=== PATIENT | female | born 1955 | race Caucasian/White ===

== ENCOUNTER 2017-08-03 12:50 | Outpatient (CLI) | payer OTHER ==
--- NOTE | 2017-08-03 14:23 | MRI ---
MRI RIGHT KNEE WITHOUT CONTRAST: HISTORY: M25.561, right knee pain. COMPARISON: None. FINDINGS: Median Meniscus: Undersurface flap tear body and posterior horn medial meniscus with 3 mm medial gutter extrusion. Th ere is abnormal signal extending to the root attachment. Lateral Meniscus: There is incomplete discoid lateral meniscus measuring up to 15 mm. Mild degenerative signal within the body and posterior horn. The ACL, PCL, MCL, and LCLC are all intact. Extensor Mechanism: Quadriceps tendon, patella, and patellar tendon are all intact. CARTILAGE: Patellofemoral Compartment: There is multifocal 30% cartilage fissuring of the patellar apex. Medial Compartment: Multifocal grade III chondromalacia central weightbearing surface of the mediofemoral condyle and med ial tibial plateau. Lateral Compartment: Intact. Moderate-sized joint effusion. Mild synovitis. Muscles: Normal muscle signal and bulk. IMPRESSION: 1. Undersurface flap tear of posterior horn and medial meniscus with multifocal grade III chondromal acia as well as small osteophyte formation. 2. 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 3. Moderate joint effusion and synovitis. 4. 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 POS: [facility]
== END 2017-08-03 12:51 | disposition home or self-care (01) ==
LOC: SCSMRI 12:50
PROVIDERS: ATTEND Orthopaedic Surgery
DX: S83.241A Other tear of medial meniscus, current injury, right knee, initial encounter (principal); M22.41 Chondromalacia patellae, right knee; M25.461 Effusion, right knee; M65.88 Other synovitis and tenosynovitis, other site; M17.11 Unilateral primary osteoarthritis, right knee

== ENCOUNTER 2017-08-14 15:22 | Outpatient (CLI) | payer OTHER ==
[2017-08-14 16:03] LABS: #Eosinphils 0.2 thou/uL (0.0-0.7); #Monocytes 0.6 thou/uL (0.11-0.59); %Basophils 0.7 % (0.0-1.0); %Eosinophils 3.2 % (0.0-10.0); %Lymphocytes 28.8 % (21.0-51.0); %Monocytes 8.2 % (0.0-10.0); %Neutrophils 59.2 % (42.0-75.0); Hemoglobin 11.7 g/dL (12.0-16.0); Mean Corpuscular HGB CONC 34.2 g/dL (32.0-36.0); Mean Corpuscular Hemoglobin 30.3 pg (27.0-31.0); Mean Corpuscular Volume 88.7 fl (81.0-99.0); Mean Platelet Volume 7.2 fL (7.4-10.4); Platelet Count 205 thou/uL (130-400); RBC Distribution Width 12.7 % (11.5-14.5); Red Blood Cell (RBC) Count 3.85 mill/uL (4.20-5.40); White Blood Cell (WBC) Count 6.8 thou/uL (4.8-10.8)
[2017-08-14 16:21] LABS: Anion Gap 12 mmol/L (10-20); BUN (Urea Nitrogen) 17 mg/dL (9.8-20.1); Calc. Creatinine Clearance 0 mL/min (70-130); Calcium 9.3 mg/dL (7.8-10.44); Carbon Dioxide 27 mmol/L (22-29); Chloride 106 mmol/L (98-107); Estimated GFR-MDRD 70; Glucose 105 mg/dL (70-105); Potassium 3.6 mmol/L (3.5-5.1); Sodium 141 mmol/L (136-145)
== END 2017-08-14 15:23 | disposition home or self-care (01) ==
LOC: LABBT 15:22
PROVIDERS: ATTEND Orthopaedic Surgery
DX: Z01.818 Encounter for other preprocedural examination (principal); S83.241D Other tear of medial meniscus, current injury, right knee, subsequent encounter
CPT/HCPCS: 80048; 85025; 93005; 93010

== ENCOUNTER → 2017-08-18 | Day surgery (SDC) | payer OTHER ==
[2017-08-14 15:38] VITALS: BMI 37.1
[~2017-08-18] MED LIST: CEFAZOLIN/Water 2 GM/20 ML SYRINGE ONE; PROPOFOL 20 ML ONE
--- NOTE | 2017-08-18 10:17 | OP ---
DATE OF PROCEDURE: 08/18/2017 PREOPERATIVE DIAGNOSIS: Medial meniscus tear, right knee. POSTOPERATIVE DIAGNOSIS: Medial meniscus tear, right knee. SURGEON: Rivera Meeks M.D. ANESTHESIA: General. BLOOD LOSS: Minimal. SPECIMEN: None. DRAINS: None. COMPLICATIONS: None. PROCEDURE: Arthroscopic partial medial meniscectomy. FINDINGS AT SURGERY: Grade III chondromalacia medial femoral condyle, intact lateral compartment, in tact patellofemoral joint. A posterior horn medial meniscus tear. PROCEDURE IN DETAIL: The scope was placed in the lateral portal and probe was placed in medial noble l. I removed most of the posterior medial meniscus using basket forceps to smooth this using a 4-0 f ull radius resector. I probed the rim of the meniscus, confirmed it was stable. The knee was then i rrigated. Findings were otherwise as described above. A sterile dressing was applied.
== END ==
LOC: SDC 06:19
PROVIDERS: ATTEND Orthopaedic Surgery
PROC: 0SBC4ZZ Excision of Right Knee Joint, Percutaneous Endoscopic Approach (ICD-10-PCS; principal; 2017-08-18)
DX: S83.241A Other tear of medial meniscus, current injury, right knee, initial encounter (principal); M94.261 Chondromalacia, right knee; Z79.899 Other long term (current) drug therapy
CPT/HCPCS: G8978-GP-CI; G8979-GP-CI; G8980-GP-CI; J2704

== ENCOUNTER 2018-01-25 08:23 | Outpatient (CLI) | payer OTHER | END 2018-01-25 08:24 | disposition home or self-care (01) | LOC: BICMAMMO 08:23 | PROVIDERS: ATTEND Family Medicine | DX: Z12.31 Encounter for screening mammogram for malignant neoplasm of breast (principal) | CPT/HCPCS: 77067 ==

== ENCOUNTER 2018-03-12 10:12 | Outpatient (CLI) | payer OTHER ==
--- NOTE | 2018-03-12 11:43 | RAD ---
TWO VIEW CHEST: Indication: Asthmatic bronchitis with acute exacerbation. FINDINGS: There is no lobar consolidation, effusion or pneumothorax. Cardiac silhouette is mildly enlarged as i s the central pulmonary vasculature. Interstitial prominence of each lung is seen. No pleural fluid o r pneumothorax. There is vascular calcification and osseous degenerative change. IMPRESSION: 1. Interstitial opacities bilaterally may relate to edema versus interstitial lung disease. 2. Evidence of mild CHF. 3. No lobar consolidation. POS: [facility]
== END 2018-03-12 10:13 | disposition home or self-care (01) ==
LOC: BICRAD 10:12
PROVIDERS: ATTEND Family Medicine
DX: J45.901 Unspecified asthma with (acute) exacerbation (principal); I50.9 Heart failure, unspecified; R91.8 Other nonspecific abnormal finding of lung field
CPT/HCPCS: 71046

== ENCOUNTER 2018-06-05 13:46 | Outpatient (CLI) | payer OTHER ==
[2018-06-05 14:23] LABS: #Eosinphils 0.2 thou/uL (0.0-0.7); #Lymphocytes 2.4 thou/uL (1.20-3.40); #Monocytes 0.8 thou/uL (0.11-0.59); %Basophils 0.4 % (0.0-1.0); %Eosinophils 2.4 % (0.0-10.0); %Lymphocytes 28.2 % (21.0-51.0); %Monocytes 9.4 % (0.0-10.0); %Neutrophils 59.5 % (42.0-75.0); Hemoglobin 12.5 g/dL (12.0-16.0); Mean Corpuscular HGB CONC 33.2 g/dL (32.0-36.0); Mean Corpuscular Hemoglobin 29.2 pg (27.0-31.0); Mean Corpuscular Volume 87.9 fL (78.0-98.0); Mean Platelet Volume 7.5 fL (7.4-10.4); Platelet Count 252 thou/uL (130-400); RBC Distribution Width 12.4 % (11.5-14.5); Red Blood Cell (RBC) Count 4.29 mill/uL (4.20-5.40); White Blood Cell (WBC) Count 8.4 thou/uL (4.8-10.8)
[2018-06-05 14:34] LABS: Anion Gap 11 mmol/L (10-20); BUN (Urea Nitrogen) 15 mg/dL (9.8-20.1); Calc. Creatinine Clearance 0 mL/min (70-130); Calcium 9.2 mg/dL (7.8-10.44); Carbon Dioxide 28 mmol/L (23-31); Chloride 105 mmol/L (98-107); Estimated GFR-MDRD 68; Glucose 94 mg/dL (80-115); Potassium 4.1 mmol/L (3.5-5.1); Sodium 140 mmol/L (136-145)
== END 2018-06-05 13:47 | disposition home or self-care (01) ==
LOC: LABBT 13:46
PROVIDERS: ATTEND Orthopaedic Surgery
DX: Z01.812 Encounter for preprocedural laboratory examination (principal); S83.242A Other tear of medial meniscus, current injury, left knee, initial encounter; Z98.890 Other specified postprocedural states
CPT/HCPCS: 80048; 85025; 93005; 93010

== ENCOUNTER 2018-06-08 06:29 | Day surgery (SDC) | payer OTHER ==
[2018-06-05 13:55] VITALS: BMI 39.5
[2018-06-08] MEDS ORDERED: PROPOFOL 20 ML ONE (07:21)
--- NOTE | 2018-06-08 14:38 | OP ---
DATE OF PROCEDURE: 06/08/2018 PREOPERATIVE DIAGNOSIS: Left knee medial meniscus tear. POSTOPERATIVE DIAGNOSIS: Left knee medial meniscus tear. PROCEDURE PERFORMED: Arthroscopic medial meniscectomy. ANESTHESIA: General. ESTIMATED BLOOD LOSS: Minimal. SPECIMENS: None. DRAINS: None. COMPLICATIONS: None. DESCRIPTION OF PROCEDURE: The patient was taken to the operating room, where general anesthesia was induced. Left leg was prepped and draped in usual sterile fashion. The scope was placed in the lateral portal and probe was placed in the medial portal, which showed some mild chondromalacia of the patella, some grade 2 chondromalacia of medial femoral condyle. She had a large complex medial meniscus tear, which was debrided using basket forceps and smoothed using a resector blade. ACL was intact. Lateral compartment was intact. I irrigated the compartments and the gutters to make sure there were no loose bodies remaining in the joint. The knee was then drained. Sterile dressing was applied. Job ID: [id number]
[2018-06-08] MEDS ORDERED: Lidocaine 2% w/Epinephrine 1:200K 20 ML VIAL ONE (16:29)
[2018-06-08] MEDS ORDERED: Bupivacaine HCl 0.5%/Epinephrine 1:200,000/PF 30 ml Vial ONE (16:29)
[2018-06-08] MEDS ORDERED: Ketorolac Tromethamine 30 MG/ML VIAL ONE (16:51)
[2018-06-08] MEDS ORDERED: Ondansetron PF 4 MG/2 ML Vial ONE (16:51)
[2018-06-08] MEDS ORDERED: PROPOFOL 200 MG/20 ML VIAL ONE (16:51)
[2018-06-08] MEDS ORDERED: Lidocaine 1% PF 5 ML VIAL ONE (16:51)
== END 2018-06-08 10:00 | disposition home or self-care (01) ==
LOC: SDC 06:29
PROVIDERS: ATTEND Orthopaedic Surgery
PROC: 0SBD4ZZ Excision of Left Knee Joint, Percutaneous Endoscopic Approach (ICD-10-PCS; principal; 2018-06-08)
DX: S83.232A Complex tear of medial meniscus, current injury, left knee, initial encounter (principal); M22.42 Chondromalacia patellae, left knee; I10 Essential (primary) hypertension; E66.9 Obesity, unspecified; Z68.39 Body mass index [BMI] 39.0-39.9, adult; Z87.891 Personal history of nicotine dependence; Z79.899 Other long term (current) drug therapy; Z98.890 Other specified postprocedural states
CPT/HCPCS: J0690; J2704

== ENCOUNTER 2019-08-12 08:07 | Outpatient (CLI) | payer OTHER ==
--- NOTE | 2019-08-12 08:37 | MMO ---
Bilateral MAMMO Bilat Screen [facility]. CLINICAL HISTORY: Patient is 64 years old and is seen for screening. The patient has no family history of breast cancer. The patient has no personal history of cancer. VIEWS: The views performed were: bilateral craniocaudal with tomosynthesis and bilateral mediolateral oblique with tomosynthesis. FILMS COMPARED: The present examination has been compared to prior imaging studies performed at [facility] on 06/15/2006 and 09/08/2008, and at [facility] on 03/01/2007. This study has been interpreted with the assistance of computer-aided detection. MAMMOGRAM FINDINGS: The breasts are heterogeneously dense, which could obscure a lesion on mammography. There are stable benign appearing calcifications seen in both breasts. There are no suspicious masses, suspicious calcifications, or new areas of architectural distortion. IMPRESSION: THERE IS NO MAMMOGRAPHIC EVIDENCE OF MALIGNANCY. A ROUTINE FOLLOW-UP MAMMOGRAM IN 1 YEAR IS RECOMMENDED. THE RESULTS OF THIS EXAM WERE SENT TO THE PATIENT. ACR BI-RADS Category 2 - Benign finding MAMMOGRAPHY NOTE: 1. A negative mammogram report should not delay a biopsy if a dominant of clinically suspicious mass is present. 2. Approximately 10% to 15% of breast cancers are not detected by mammography. 3. Adenosis and dense breasts may obscure an underlying neoplasm. Reported by: KATLYN LE MD Electonically Signed: [id number]
== END 2019-08-12 08:08 | disposition home or self-care (01) ==
LOC: BICMAMMO 08:07
PROVIDERS: ATTEND Family Medicine
DX: Z12.31 Encounter for screening mammogram for malignant neoplasm of breast (principal)
CPT/HCPCS: 77063; 77067

== ENCOUNTER 2020-03-30 08:41 | Inpatient (IN) | payer OTHER ==
[2020-03-30] MEDS ORDERED: Morphine 4 MG/ML VIAL ONE (09:25)
[2020-03-30] MEDS ORDERED: ePHEDrine/0.9% NaCl/PF SYRINGE 50 mg/10 ml ONE (09:26)
[2020-03-30] MEDS ORDERED: Lidocaine 1% PF 5 ML VIAL ONE (09:26)
[2020-03-30] MEDS ORDERED: PROPOFOL 200 MG/20 ML VIAL ONE (09:26)
[2020-03-30] MEDS ORDERED: Dexamethasone 20 MG/5 ML VIAL ONE (09:26)
[2020-03-30] MEDS ORDERED: Glycopyrrolate 0.2 MG/ML 5 ML SYRINGE ONE (09:26)
[2020-03-30] MEDS ORDERED: Ondansetron PF 4 MG/2 ML Vial ONE ×2 (09:26→09:29)
[2020-03-30] MEDS ORDERED: Rocuronium Bromide 10 MG/ML (10ML VIAL) ONE (09:26)
[2020-03-30] MEDS ORDERED: Ketorolac Tromethamine 30 MG/ML VIAL ONE (09:26)
--- NOTE | 2020-03-30 09:55 | RAD ---
XR Knee Rt 4 View STANDARD HISTORY: Fall, right knee pain FINDINGS: Degenerative changes are present. No fracture or dislocation is identified.
--- NOTE | 2020-03-30 09:57 | RAD ---
EXAM: 3 views of the right ankle HISTORY: Ankle pain after falling COMPARISON: None FINDINGS: 3 views of the right ankle shows comminuted fractures of the distal diaphyses of the tibia and fibula. Moderate diffuse soft tissue swelling is seen. No degenerative changes are present in the ankle. There are degenerative changes in the midfoot. There are questionable fractures of the bas es of the second through fourth metatarsals. IMPRESSION: 1. Distal tibia and fibula fractures 2. Possible fractures of the bases of the second through fourth metatarsals
--- NOTE | 2020-03-30 10:00 | RAD ---
2 views of the right foot: 03/30/2020 Comparison: None HISTORY: Fall from a deer stand, ankle pain FINDINGS: There is prominent soft tissue swelling overlying the midfoot. There is enthesophyte format ion of the Achilles insertion and plantar aponeurosis origin. There is an incompletely assessed obliquely oriented fracture involving the distal right fibula and t he distal right tibia. Evaluation of the foot is limited as only 2 views are provided. No frontal radiograph of the right fo ot is provided. There are findings concerning for multiple proximal metatarsal shaft fractures, probably involving the second, third, and fourth proximal metatarsals. Recommend further assessment w ith full right foot series or CT. IMPRESSION: Incomplete assessment of the right foot with findings suspicious for multiple proximal me tatarsal shaft fractures. There are fractures involving the distal right tibia and distal right fibula as well. Further imaging the right foot is advised to fully assess. Please see above mili youngblood.
--- NOTE | 2020-03-30 10:38 | RAD ---
RIGHT LOWER LEG 2 VIEWS: Date: 03/30/2020 INDICATION: History of fall with leg injury. COMPARISON: None. FINDINGS: There is a heavily comminuted distal tibiofibular fracture, predominantly spiral in orientation. Dist al fracture fragments are displaced posteriorly one cortex width. There is no evidence of fracture ex tension into the tibial plafond. IMPRESSION: Heavily comminuted distal tibiofibular fracture. POS: [facility]
[2020-03-30] MEDS ORDERED: HYDROmorphone 0.5 MG/0.5 ML SYRINGE ONE ×4 (10:41→15:40)
--- NOTE | 2020-03-30 10:47 | RAD ---
XR Chest 1 View Portable HISTORY: Preoperative evaluation. Lower extremity fractures. COMPARISON: None FINDINGS: The heart size is normal. The lungs are well expanded without focal areas of consolidation, pneumothorax or pleural effusions. IMPRESSION: No radiographic evidence of acute cardiopulmonary process.
[2020-03-30 11:06] LABS: #Lymphocytes 1.1 thou/uL (1.20-3.40); #Monocytes 0.5 thou/uL (0.11-0.59); #Neutrophils 6.5 thou/uL (1.40-6.50); %Basophils 0.3 % (0.0-1.0); %Eosinophils 0.3 % (0.0-10.0); %Lymphocytes 13.4 % (21.0-51.0); %Monocytes 6.1 % (0.0-10.0); %Neutrophils 79.9 % (42.0-75.0); Hemoglobin 12.1 g/dL (12.0-16.0); Mean Corpuscular HGB CONC 33.8 g/dL (32.0-36.0); Mean Corpuscular Hemoglobin 29.6 pg (27.0-31.0); Mean Corpuscular Volume 87.8 fL (78.0-98.0); Mean Platelet Volume 7.6 fL (7.4-10.4); Platelet Count 193 thou/uL (130-400); RBC Distribution Width 11.9 % (11.5-14.5); Red Blood Cell (RBC) Count 4.08 mill/uL (4.20-5.40); White Blood Cell (WBC) Count 8.2 thou/uL (4.8-10.8)
[2020-03-30 11:17] LABS: INR-International Normal Ratio 1.1; PTT 32.2 sec (22.9-36.1); Prothrombin Time 14.1 sec (12.0-14.7)
--- NOTE | 2020-03-30 11:18 | CON ---
DATE OF CONSULTATION: 03/30/2020 This is Cristel Kimbrough PA-C dictating a report for Home Powell MD. REQUESTING PHYSICIAN: Jose Reich MD CONSULTING PHYSICIAN: Home Powell MD REASON FOR CONSULTATION: Right ankle and foot fractures. HISTORY OF PRESENT ILLNESS: This is a 65-year-old female, who presented to our facility after a fall from a deer stand. She states she was climbing into the deer stand early this morning to la hogs with her when she lost her balance and fell backward landing awkwardly onto her right leg. She presented to our facility by way of ground EMS, and upon workup in our emergency department, she was found to have distal right tibia shaft fracture as well as multiple foot fractures. We have been consulted for this reason. Currently at bedside, the patient denies any head injury or loss of consciousness. Denies any numbness, tingling. She mainly complains of right ankle and foot pain. No other orthopedic complaints at this time. PAST MEDICAL HISTORY: Hypertension. PAST SURGICAL HISTORY: Hemorrhoidectomy, hysterectomy, multiple C-sections, bilateral knee arthroscopies. SOCIAL HISTORY: The patient lives at home with . She is retired. She is a former smoker, quit approximately three years ago. She drinks beer approximately every 3 to 4 days. She is an independent ambulator. FAMILY HISTORY: Reviewed and noncontributory. REVIEW OF SYSTEMS: Ten-point review of systems conducted and otherwise negative except for stated above. PHYSICAL EXAMINATION: VITAL SIGNS: Current vital signs including blood pressure of 180/80, pulse of 73, respiratory rate of 15, O2 saturation of 100% on room air. GENERAL: The patient is awake and alert. She answers all questions appropriately. Her is at bedside in the ER. She appears slightly distressed secondary to pain at this current time. HEENT: Head is normocephalic and atraumatic. NECK: Supple. Trachea midline. LUNGS: Breathing is nonlabored. EXTREMITIES: Evaluation of the right lower extremity shows a deformity of the lower leg. The lower portion of the leg including the ankle and foot are externally rotated while the knee is in AP alignment. She is able to slightly wiggle her toes. Dorsalis pedis pulse is palpable. Foot is warm to touch. She is tender along the dorsum of the foot and the distal tibia region. The knee is nontender. A log roll was not elicited secondary to the patient's current pain status. Skin is intact and no lesions or rashes are noted to the right lower extremity. Left lower extremity and bilateral upper extremities, no injuries or deformities are noted. She is using these limbs without any difficulty. IMAGING DATA: Radiographic imaging reviewed today including views of the right tibia, right ankle and right foot demonstrate a distal oblique fracture of the right tibia with displacement and rotational deformity. There are multiple metatarsal fractures appear at the proximal aspect of two through four, although not completely visualized. This is a two-part foot series. Radiology recommends CT evaluation for further fracture assessment. ASSESSMENT: Distal tibial fracture and multiple foot fractures in a 65-year-old female with a fall from a deer stand. PLAN: The patient has been n.p.o. She will be admitted to the Trauma Service. We will consult with Dr. Powell for further evaluation of the foot films before proceeding with a CT per his recommendation. We will get this leg reduced and comfortable in a splint for her. At this time, she is very uncomfortable. We have discussed surgery with her. We will plan to go forward with this afternoon in order to restore anatomic alignment and promote function. This will include ORIF of the right distal tibia and possibly ORIF of fractures in the foot depending on imaging. Plan of care discussed with the patient and her today. They are amenable to this. Job ID: [id number]
[2020-03-30 11:31] LABS: ALT (SGPT) 15 U/L (8-55); AST (SGOT) 28 U/L (5-34); Albumin 4.5 g/dL (3.4-4.8); Alkaline Phosphatase 54 U/L (40-110); Anion Gap 14 mmol/L (10-20); BUN (Urea Nitrogen) 18 mg/dL (9.8-20.1); Bilirubin, Total 0.6 mg/dL (0.2-1.2); Calc. Creatinine Clearance 0 mL/min (70-130); Calcium 8.9 mg/dL (7.8-10.44); Carbon Dioxide 25 mmol/L (23-31); Chloride 106 mmol/L (98-107); Glucose 106 mg/dL (80-115); Magnesium 2.1 mg/dL (1.6-2.6); Phosphorus 3.3 mg/dL (2.3-4.7); Potassium 4.1 mmol/L (3.5-5.1); Protein, Total 7.5 g/dL (5.8-8.1); Sodium 141 mmol/L (136-145)
[2020-03-30] MEDS ORDERED: Fentanyl 100 MCG/2 ML VIAL ONE ×4 (11:49→16:05)
--- NOTE | 2020-03-30 12:05 | CT ---
CT right lower extremity noncontrast: 03/30/2020 HISTORY: 65-year-old female with acute traumatic distal tibial and fibular fractures from fall. CT is performe d to evaluate for possible fractures of the foot questioned on plain radiograph FINDINGS: Nondisplaced and minimally displaced fractures of proximal metaphyses of second, third, and fourth me tatarsals/ Metatarsal diaphyses are intact. Nondisplaced fracture of head of fifth metatarsal. No dislocation of TMT or MTP joints. Calcaneus and tarsal bones demonstrate no definite fracture. Ankle mortise is congruent. Spiral, noncomminuted fracture of distal tibial metadiaphysis, with approximately 20-25% bone width p osterior and slight lateral, displacement, of major distal fragment. This does not reach the tibial plafond. Medial and posterior malleoli are intact. Predominantly oblique-spiral fracture of distal fibular metadiaphysis, with comminution, and rotation and displacement of multiple small fracture fragments. Approximately 75% to 90% shaft width posterior displacement of major distal fragment. No fracture involving the lateral malleolus at the level of the ankle mortise and inferiorly. Soft tissue edema of ankle and foot. IMPRESSION: 1. Nondisplaced and minimally displaced fractures of proximal metaphyses of second, third, and fourth metatarsals. 2. Probable fracture, nondisplaced, of head of fifth metatarsal. 3. Comminuted, displaced Benitez type III fracture of distal fibula 4. Noncomminuted, displaced spiral fracture of distal tibial metadiaphysis..
[2020-03-30] MEDS ORDERED: CEFAZOLIN 2 GM in Premix Bag 1 BAG IVPB SCH (12:30)
[2020-03-30 12:32] LABS: SARS-CoV-2 NAA Rapid Test Not Detected (NotDetected)
[2020-03-30] MEDS ORDERED: Bupivacaine PF 0.5% 30 ML VIAL ONE (13:51)
--- NOTE | 2020-03-30 14:26 | RAD ---
RIGHT TIBIA FIBULA 2 VIEWS: HISTORY: ORIF tibia fibula. COMPARISON: None. FINDINGS: Satisfactory appearance intramedullary nail placement through the tibial fracture. Similar appearanc e of the fibular spiral fracture with a syndesmosis. IMPRESSION: Fluoroscopy for surgical purposes. POS: [facility]
[2020-03-30] MEDS ORDERED: Ondansetron PF 4 MG/2 ML Vial IVP PRN (14:43)
[2020-03-30] MEDS ORDERED: Dextrose 50% Abboject 50 ML SYRINGE SLOW IVP PRN (14:43)
[2020-03-30] MEDS ORDERED: Dextrose 5% in Water 1,000 ML IV PRN (14:43)
[2020-03-30] MEDS ORDERED: Sodium Chloride 0.9% 1,000 ML IV SCH (14:45)
[2020-03-30] MEDS ORDERED: Cyclobenzaprine 10 MG TAB PO PRN (14:48)
[2020-03-30] MEDS ORDERED: traMADol HCl 50 MG TAB PO PRN (14:48)
[2020-03-30] MEDS ORDERED: HYDROmorphone 2 MG/ML VIAL ONE (15:39)
[2020-03-30 16:53] VITALS: BMI 32.3
[2020-03-30] MEDS: Gabapentin 300 MG CAP PO SCH ×2 (16:57→20:44)
[2020-03-30] MEDS: Acetaminophen 500 MG TAB PO SCH (17:56)
[2020-03-30] MEDS: Morphine 4 MG/ML VIAL SLOW IVP PRN (20:43)
[2020-03-30] MEDS: Senokot S 8.6-50 MG TAB PO SCH (20:44)
[2020-03-30] MEDS: Famotidine 20 MG TAB PO SCH (20:44)
[2020-03-30] MEDS: Ibuprofen 200 MG TAB PO SCH (20:51)
--- NOTE | 2020-03-30 22:45 | HP ---
TRAUMA SURGEON: Dr. Kerr. CONSULTING PHYSICIAN: Dr. Powell. HISTORY OF PRESENT ILLNESS: The patient is a 65-year-old female, who presented to the emergency department after she had a mechanical fall about 5 feet from a deer stand the previous night. The patient reports that she arrived today after having excruciating right lower extremity pain. She was evaluated by Orthopedic Surgery and they planned for operative intervention. She denies hitting her head, loss of consciousness, and anticoagulation use. REVIEW OF SYSTEMS: All additional 10-point review of systems negative except as indicated above. PAST MEDICAL HISTORY: Hypertension. PAST SURGICAL HISTORY: Hemorrhoidectomy, , bilateral knee surgeries, and hysterectomy. SOCIAL HISTORY: The patient denies tobacco and drug use. She drinks alcohol occasionally. MEDICATIONS: Amlodipine. ALLERGIES: NO KNOWN DRUG ALLERGIES. PHYSICAL EXAMINATION: VITAL SIGNS: Temperature 97.4, pulse 54, respirations 14, oxygen saturation 92% on 2 L nasal cannula, blood pressure 127/71. PRIMARY SURVEY: Airway intact. Adequate breath sounds bilaterally. 2+ pulses in bilateral radials, femorals, and DPs. GCS 15. Gross motor and sensation intact. No lacerations bruising or external bleeding. SECONDARY SURVEY: HEAD: Normocephalic, no signs of gross palpable skull deformity. EYES: Pupils 3-2, equal, round, reactive to light bilaterally. ENT: No signs of trauma. C-SPINE: No step-offs or deformities, nontender, C-collar not in place. CHEST: Nontender. No crepitus. No abrasions or ecchymosis noted. Equal chest movement. ABDOMEN: Soft, nontender, nondistended. PELVIS: Stable to palpation, nontender. No abrasions or ecchymosis noted. RECTAL: Deferred. GENITOURINARY: Deferred. EXTREMITIES: The patient has a splint to the right lower extremity. No abrasions or ecchymosis noted. 2+ pulses in bilateral radials, femorals, and DPs. BACK/SPINE: No step-offs or deformities or tenderness to palpation of thoracic or lumbar spine. No abrasions or ecchymosis noted. NEUROLOGIC: 5/5 strength in the bilateral radio host, plantar flexion, dorsiflexion. Gross normal sensation x4 extremities. LABORATORY FINDINGS: White count 8.2, hemoglobin 12.1, hematocrit 35.8, platelets 193. INR 1.1, PTT 32.2. Sodium 141, potassium 4.1, chloride 106, bicarb 25, BUN 15, creatinine 0.72, phosphorus 3.3, magnesium 2.1. Total bilirubin 0.6, AST 28, ALT 15. COVID PCR is negative. DIAGNOSTIC FINDINGS: X-ray of the right knee demonstrates degenerative changes as present. No fracture or dislocation is identified. X-ray of the right foot demonstrates incomplete assessment of the right foot with findings suspicious for multiple proximal metatarsal fractures. There are fractures involving the distal right tibia and fibula as well. X-ray of the right ankle demonstrates distal tibia and fibular fracture, possible fracture at the base of the second through fourth metatarsals. X-ray of the right tib-fib demonstrates heavily comminuted distal tibial-fibular fracture. CT of the right lower extremity demonstrates nondisplaced to minimally displaced fracture of the proximal metaphysis of the second, third, and fourth metatarsal. Probable fracture nondisplaced of the head of the fifth metatarsal. Comminuted displaced Benitez type 3 fracture of distal fibula. Comminuted displaced spiral fracture of the distal tibial metaphysis. Chest x-ray demonstrates no radiographic evidence of acute cardiopulmonary process. ASSESSMENT: 1. Status post mechanical fall from deer stand about 5 feet. 2. Right tib-fib fracture. 3. Right two, three, and five metatarsal fractures. 4. History of hypertension. PLAN: The patient is admitted to the Trauma Service with plans for operative intervention of the right tib-fib and right metatarsal fractures by Orthopedic Surgery. Postoperatively, she will go to [place] [id number]. She will be n.p.o. with and then a regular diet postoperatively. She will receive normal saline for a total 1 L. Postop, she will work with Physical and Occupational Therapy and may possibly be able to go home, but if she is not able to move around safely, she will go to acute rehab facility. Job ID: [id number]
[2020-03-31] MEDS: Acetaminophen 500 MG TAB PO SCH ×5 (00:12→23:48)
[2020-03-31 05:29] LABS: #Lymphocytes 1.1 thou/uL (1.20-3.40); #Monocytes 0.7 thou/uL (0.11-0.59); %Basophils 0.2 % (0.0-1.0); %Eosinophils 0.1 % (0.0-10.0); %Lymphocytes 14.5 % (21.0-51.0); %Monocytes 8.9 % (0.0-10.0); %Neutrophils 76.3 % (42.0-75.0); Hemoglobin 9.7 g/dL (12.0-16.0); Mean Corpuscular HGB CONC 34.1 g/dL (32.0-36.0); Mean Platelet Volume 7.8 fL (7.4-10.4); Platelet Count 152 thou/uL (130-400); Red Blood Cell (RBC) Count 3.11 mill/uL (4.20-5.40); White Blood Cell (WBC) Count 7.9 thou/uL (4.8-10.8)
[2020-03-31 05:43] LABS: Anion Gap 13 mmol/L (10-20); BUN (Urea Nitrogen) 19 mg/dL (9.8-20.1); Calc. Creatinine Clearance 115 mL/min (70-130); Calcium 8.1 mg/dL (7.8-10.44); Carbon Dioxide 23 mmol/L (23-31); Chloride 108 mmol/L (98-107); Glucose 122 mg/dL (80-115); Magnesium 2.3 mg/dL (1.6-2.6); Potassium 4.7 mmol/L (3.5-5.1); Sodium 139 mmol/L (136-145)
[2020-03-31] MEDS: Ibuprofen 200 MG TAB PO SCH ×3 (06:02→21:05)
[2020-03-31] MEDS: traMADol HCl 50 MG TAB PO PRN ×4 (06:02→23:49)
[2020-03-31] MEDS: Morphine 4 MG/ML VIAL SLOW IVP PRN (08:35)
[2020-03-31] MEDS: Famotidine 20 MG TAB PO SCH ×2 (08:36→21:05)
[2020-03-31] MEDS: Gabapentin 300 MG CAP PO SCH ×3 (08:36→21:06)
[2020-03-31] MEDS: Polyethylene Glycol 3350 17 GM Packet PO SCH (08:36)
[2020-03-31] MEDS: Senokot S 8.6-50 MG TAB PO SCH ×2 (08:36→21:05)
[2020-03-31] MEDS: Enoxaparin Sodium 40 MG/0.4 ML SYRINGE SC SCH (09:50)
[2020-03-31] MEDS ORDERED: HYDROcodone/Acetaminophen 5/325 mg Tablet ONE (12:07)
--- NOTE | 2020-03-31 16:12 | OP ---
DATE OF PROCEDURE: 03/30/2020 PREOPERATIVE DIAGNOSES: 1. Right closed tibial shaft fracture. 2. Right lateral malleolus fracture. 3. Right 2nd, 3rd, and 4th metatarsal base fractures, nondisplaced. POSTOPERATIVE DIAGNOSES: 1. Right closed tibial shaft fracture. 2. Right lateral malleolus fracture. 3. Right 2nd, 3rd, and 4th metatarsal base fractures, nondisplaced. PROCEDURES PERFORMED: 1. Intramedullary nail stabilization of right tibial shaft. 2. Closed treatment of right lateral malleolus fracture. 3. Closed treatment of right 2nd, 3rd, and 4th metatarsal base fractures. ANESTHESIA: General. HEAD OF ENGLISH: Hermilo Lagunas IMPLANT: Synthes System was used with a 10 x 315 mm tibial nail and a total of 3 Crosslock screws. COMPLICATIONS: None. DRAINS: None. SPECIMEN: None. OUTCOME: Satisfactory. INDICATIONS FOR PROCEDURE: The patient is a 65-year-old lady, status post fall sustaining among other injuries, right tibial shaft fracture, right lateral malleolus fracture, and metatarsal base fractures. After discussion with the patient including risks and benefits, we decided to proceed with intramedullary nail stabilization of the tibial shaft and nonsurgical management of the other fractures. Informed consent has been obtained. I believe all questions have been answered. DESCRIPTION OF PROCEDURE: The patient was brought to the operating room and a time-out performed followed by induction of general anesthesia. Next, she was positioned supine on the fracture table with the uninjured leg held in longitudinal traction with the injured leg flexed at the knee over a bolster and then traction applied. This was followed by a sterile prep and drape of the right lower extremity. Next, C-arm imaging was used to confirm that the fracture could indeed be reduced to a near anatomic state. Once confirmed, a small incision was made at the anterior knee overlying the patellar tendon. After skin was sharply incised, dissection was carried down bluntly to the underlying peritenon of the patellar tendon. This structure was incised in line with skin incision and reflected medially and laterally. Next, a dissection to the medial side of the patellar tendon was performed with a self-retaining retractor placed in the wound at this level, allowing for palpation of the proximal tibia in the appropriate nail starting point. A threaded guidewire was then started down this path and then a reamer passed over the threaded guidewire. Next, a ball-tipped guidewire was passed down the shaft of the tibia across the fracture into the distal tibial metaphysis under C-arm guidance. This was performed while I reduced the fracture and my teacher's assistant passed a ball-tipped guidewire. Once passed, my teacher's assistant then maintained reduction of the fracture and I proceeded with reaming starting at 8.5 mm and going up to 11 mm. Chatter was appreciated beginning at about 10 mm. Next, a 10 x 315 mm tibial nail was passed over the ball-tipped guidewire, delivering it down the shaft of the fracture wall. My teacher's assistant maintained reduction of the fracture across the fracture and into the distal tibial metaphysis. Once fully seated, freehand technique through 2 small incisions was performed to place two distal cross-lock screws. This was then followed by insertion of a single proximal cross-lock screw through the jig. At the completion of this final AP and lateral C-arm images of the tibia were obtained that showed near-anatomic alignment of the fracture and excellent reduction of the distal fibular fracture, which was proximal to the anterior inferior tib-fib ligament attachment and as such, felt to be stable enough to treat nonsurgically. At the completion of this, the insertion jig was removed from the top of the nail and then the small CrossLock screw incisions were closed with bridger followed by layered closure of the anterior knee incision with 0 Vicryl for the peritenon, followed by 2-0 Vicryl, and then bridger for the skin. Xeroform gauze and Webril dressing was applied and then a short-leg posterior fiberglass splint was applied to stabilize the lateral malleolus fracture as well as metatarsal base fractures. At the completion of this, the patient was then transferred to recovery room in stable condition. There were no complications. She tolerated the procedure well. Job ID: [id number] [id number]
--- NOTE | 2020-04-01 06:12 | PRG ---
DATE OF SERVICE: 03/31/2020 SUBJECTIVE: The patient is a 65-year-old female, who presents to the ED status post mechanical fall and was found to have a right tibial-fibula fracture and right 2, 3, and 5 metatarsal fractures. The patient is postop day 1 from surgery to repair fractures and stabilize the ankle. The patient was examined while Physical Therapy was in the room. The patient is overall feeling well with right lower extremity pain that is well controlled, especially while at rest. The patient denies bowel movement at this time, but is passing flatus. Otherwise, feels well. No nausea or vomiting. OBJECTIVE: VITAL SIGNS: Temperature 98.7, pulse 52, respiratory rate 14, O2 saturation 98% on 2 L nasal cannula (the patient was seen in room, had 96% O2 saturation on room air). Blood pressure 105/67. GENERAL: A 65-year-old female, who appears stated age, in no acute distress. HEENT: Normocephalic and atraumatic. RESPIRATORY: Equal chest rise and fall. No acute respiratory distress. MUSCULOSKELETAL: Right lower extremity postoperative splint in place. Moving other extremities well. NEUROLOGICAL: A and O x3. No focal deficits. PSYCH: Appropriate and congruent mood and affect. LABORATORY DATA: White blood cell count 7.9, hemoglobin 9.7, hematocrit 28.3, platelets 152. BMP unremarkable. No diagnostic imaging to report. ASSESSMENT: 1. Status post mechanical fall from approximately 5 feet. 2. Right tibial-fibular fracture. 3. Right 2, 3, and 5 metatarsal fractures. 4. History of hypertension. PLAN: Discussed home health versus inpatient rehabilitation, status post hospital. The patient is requesting to go home with home health versus an inpatient stay. We would like to have Physical Therapy re-evaluate the patient this afternoon and determine if that could be arranged. Depending on Therapy evaluation and the patient's willingness to go to inpatient rehab, we will decide on discharge planning. We will continue home amlodipine. The patient was seen and plan was discussed with Dr. Kerr, who is in agreement. Job ID: [id number]
[2020-04-01] MEDS: Acetaminophen 500 MG TAB PO SCH ×2 (07:36→10:48)
[2020-04-01] MEDS: Ibuprofen 200 MG TAB PO SCH ×2 (07:37→15:39)
[2020-04-01 08:07] VITALS: TEMP 98.4
[2020-04-01] MEDS: Senokot S 8.6-50 MG TAB PO SCH (08:50)
[2020-04-01] MEDS: Famotidine 20 MG TAB PO SCH (08:50)
[2020-04-01] MEDS: Enoxaparin Sodium 40 MG/0.4 ML SYRINGE SC SCH (08:51)
[2020-04-01] MEDS: Gabapentin 300 MG CAP PO SCH ×2 (08:51→16:00)
[2020-04-01] MEDS: Polyethylene Glycol 3350 17 GM Packet PO SCH (08:51)
[2020-04-01] MEDS ORDERED: Amlodipine 5 MG TAB PO SCH (09:00)
[2020-04-01] MEDS ORDERED: Acetaminophen/Codeine 30-300mg Tablet PO PRN ×2 (09:59)
[2020-04-01 12:42] VITALS: BP 109/68
[2020-04-01] MEDS: traMADol HCl 50 MG TAB PO PRN (16:00)
== END 2020-04-01 16:40 | disposition home or self-care (01) | DRG 494 ==
LOC: ERS 08:41 → SDC 11:42 → SURG A 14:43
PROVIDERS: ADMIT Surgery; ATTEND Surgery
PROC: 0QSG06Z Reposition Right Tibia with Intramedullary Internal Fixation Device, Open Approach (ICD-10-PCS; principal; 2020-03-30)
PROC: 2W3QX1Z Immobilization of Right Lower Leg using Splint (ICD-10-PCS; 2020-03-30)
DX: S82.51XA Displaced fracture of medial malleolus of right tibia, initial encounter for closed fracture (principal); S82.831A Other fracture of upper and lower end of right fibula, initial encounter for closed fracture; S92.324A Nondisplaced fracture of second metatarsal bone, right foot, initial encounter for closed fracture; Z20.822 Contact with and (suspected) exposure to COVID-19; S92.334A Nondisplaced fracture of third metatarsal bone, right foot, initial encounter for closed fracture; S92.344A Nondisplaced fracture of fourth metatarsal bone, right foot, initial encounter for closed fracture; W17.89XA Other fall from one level to another, initial encounter; I10 Essential (primary) hypertension; Z90.710 Acquired absence of both cervix and uterus; Z98.890 Other specified postprocedural states
CPT/HCPCS: 36415; 71045; 76000; 80048; 80053; 83735; 84100; 85025; 85610; 85730; 86850; 86900; 86901; 96374; 96375; C1713; J0690; J1100; J1170; J1650; J1885; J2270; J2405; J2704; J3010; S0020; U0002

== ENCOUNTER 2020-08-03 15:14 | Outpatient (CLI) | payer OTHER ==
[~2020-08-03 15:14] MED LIST changes: -CEFAZOLIN/Water 2 GM/20 ML SYRINGE ONE; +Iopamidol 370 76% 100 ML VIAL ONE; -PROPOFOL 20 ML ONE
== END 2020-08-03 15:15 | disposition home or self-care (01) ==
LOC: BICCT 15:14
PROVIDERS: ATTEND Family Medicine
DX: R10.9 Unspecified abdominal pain (principal); E27.8 Other specified disorders of adrenal gland; N32.89 Other specified disorders of bladder
CPT/HCPCS: 74177

== ENCOUNTER 2022-05-21 23:11 | Inpatient (IN) | payer MEDICARE, OTHER ==
[~2022-05-21 23:11] MED LIST changes: -Iopamidol 370 76% 100 ML VIAL ONE; +Iopamidol-370 76% 500 ML MDV (1 ML CHARGE) ONE
[2022-05-21 23:37] LABS: #Basophils 0.1 thou/uL (0.0-0.2); #Eosinphils 0.3 thou/uL (0.0-0.7); #Lymphocytes 2.9 thou/uL (1.20-3.40); #Monocytes 0.7 thou/uL (0.11-0.59); #Neutrophils 5.2 thou/uL (1.40-6.50); %Basophils 0.8 % (0.0-1.0); %Eosinophils 3.8 % (0.0-10.0); %Lymphocytes 31.8 % (21.0-51.0); %Monocytes 7.6 % (0.0-10.0); %Neutrophils 56.1 % (42.0-75.0); Hemoglobin 12.7 g/dL (12.0-16.0); Mean Corpuscular HGB CONC 35.3 g/dL (32.0-36.0); Mean Corpuscular Hemoglobin 30.3 pg (27.0-31.0); Mean Corpuscular Volume 85.7 fl (78.0-98.0); Mean Platelet Volume 7.2 fL (7.4-10.4); Platelet Count 239 10x3/uL (130-400); RBC Distribution Width 12.2 % (11.5-14.5); Red Blood Cell (RBC) Count 4.21 mill/uL (4.20-5.40); White Blood Cell (WBC) Count 9.3 10x3/uL (4.8-10.8)
[2022-05-21] MEDS ORDERED: Dexamethasone 10 MG/ML VIAL ONE (23:47)
[2022-05-21 23:59] LABS: ALT (SGPT) 10 U/L (8-55); AST (SGOT) 27 U/L (5-34); Albumin 4.5 g/dL (3.4-4.8); Alkaline Phosphatase 69 U/L (40-110); Anion Gap 16 mmol/L (10-20); BUN (Urea Nitrogen) 13 mg/dL (9.8-20.1); Bilirubin, Total 0.2 mg/dL (0.2-1.2); Calc. Creatinine Clearance 0 mL/min (70-130); Calcium 8.9 mg/dL (7.8-10.44); Carbon Dioxide 24 mmol/L (23-31); Chloride 101 mmol/L (98-107); Estimated GFR 79; Globulin 3.2 g/dL (2.4-3.5); Glucose 129 mg/dL (80-115); Potassium 3.4 mmol/L (3.5-5.1); Protein, Total 7.7 g/dL (5.8-8.1); Sodium 138 mmol/L (136-145)
[2022-05-22] MEDS ORDERED: cefTRIAXone (ROCEPHIN) 1 GM VIAL ONE (00:44)
[2022-05-22 02:17] LABS: SARS-CoV-2 NAA Rapid Test Not Detected (NotDetected)
[2022-05-22] MEDS ORDERED: Azithromycin 500 MG VIAL ONE (02:33)
[2022-05-22] MEDS ORDERED: Acetaminophen 500 MG TAB ONE ×2 (02:50→07:37)
[2022-05-22] MEDS ORDERED: Benzonatate 100 MG CAP PO PRN (09:56)
[2022-05-22] MEDS ORDERED: Calcium Carbonate 500 MG ChewTAB PO PRN (09:56)
[2022-05-22] MEDS ORDERED: Ondansetron PF 4 MG/2 ML Vial IVP PRN (09:56)
[2022-05-22] MEDS ORDERED: Docusate 100 MG CAP PO PRN (09:56)
[2022-05-22] MEDS ORDERED: Ondansetron ODT 4 MG TAB PO PRN (09:56)
[2022-05-22] MEDS ORDERED: Ipratropium/Albuterol 3 ML NEB NEB PRN (09:59)
[2022-05-22] MEDS ORDERED: Electrolyte Replacement Protocol 1 EACH FS SCH (10:00)
[2022-05-22] MEDS ORDERED: Potassium Chloride 20 MEQ TAB PO SCH (11:15)
[2022-05-22] MEDS ORDERED: Potassium Chloride 20 MEQ TAB ONE (13:40)
[2022-05-22] MEDS: methylPREDNISolone Sod Succ 40 MG VIAL IVP SCH ×2 (15:10→21:04)
[2022-05-22] MEDS: Acetaminophen 325 MG TAB PO PRN ×2 (15:30→20:14)
[2022-05-22 16:36] VITALS: BMI 37.8
[2022-05-22] MEDS ORDERED: Amlodipine 5 MG TAB PO SCH (17:31)
[2022-05-22] MEDS: Famotidine 20 MG TAB PO SCH (20:15)
[2022-05-23] MEDS: cefTRIAXone\\ROCEPHIN 1 GM in Sodium Chloride 0.9% 100 ML IVPB SCH (04:07)
[2022-05-23] MEDS: Azithromycin 500 MG in Sodium Chloride 0.9% 250 ML 250 ML IVPB SCH (04:57)
[2022-05-23] MEDS: methylPREDNISolone Sod Succ 40 MG VIAL IVP SCH ×3 (05:01→21:22)
[2022-05-23 05:07] LABS: #Lymphocytes 1.1 thou/uL (1.20-3.40); #Monocytes 0.5 thou/uL (0.11-0.59); %Eosinophils 0.3 % (0.0-10.0); %Monocytes 3.9 % (0.0-10.0); %Neutrophils 87.9 % (42.0-75.0); Hemoglobin 13.8 g/dL (12.0-16.0); Mean Corpuscular Hemoglobin 28.9 pg (27.0-31.0); Mean Corpuscular Volume 87.7 fl (78.0-98.0); Mean Platelet Volume 7.6 fL (7.4-10.4); Platelet Count 281 10x3/uL (130-400); RBC Distribution Width 12.1 % (11.5-14.5); Red Blood Cell (RBC) Count 4.76 mill/uL (4.20-5.40); White Blood Cell (WBC) Count 13.7 10x3/uL (4.8-10.8)
[2022-05-23 05:27] LABS: Hemoglobin A1c 5.8 % (4.0-6.0)
[2022-05-23 05:28] LABS: Anion Gap 15 mmol/L (10-20); BUN (Urea Nitrogen) 14 mg/dL (9.8-20.1); Calc. Creatinine Clearance 129 mL/min (70-130); Calcium 9.8 mg/dL (7.8-10.44); Carbon Dioxide 24 mmol/L (23-31); Chloride 106 mmol/L (98-107); Estimated GFR 91; Glucose 140 mg/dL (80-115); Magnesium 2.4 mg/dL (1.6-2.6); Potassium 4.4 mmol/L (3.5-5.1); Sodium 141 mmol/L (136-145)
[2022-05-23] MEDS: Famotidine 20 MG TAB PO SCH ×2 (08:44→21:21)
[2022-05-23] MEDS: Amlodipine 5 MG TAB PO SCH (08:44)
[2022-05-23 14:25] LABS: Strep pneumo Urine Ag NEGATIVE (NEGATIVE)
[2022-05-23] MEDS: Acetaminophen 325 MG TAB PO PRN (17:29)
[2022-05-24] MEDS: cefTRIAXone\\ROCEPHIN 1 GM in Sodium Chloride 0.9% 100 ML IVPB SCH (03:46)
[2022-05-24] MEDS: Azithromycin 500 MG in Sodium Chloride 0.9% 250 ML 250 ML IVPB SCH (04:24)
[2022-05-24 05:20] LABS: Hemoglobin 12.9 g/dL (12.0-16.0); Mean Corpuscular HGB CONC 31.6 g/dL (32.0-36.0); Mean Corpuscular Volume 88.4 fl (78.0-98.0); Platelet Count 263 10x3/uL (130-400); RBC Distribution Width 12.4 % (11.5-14.5)
[2022-05-24 05:36] LABS: Anion Gap 13 mmol/L (10-20); BUN (Urea Nitrogen) 21 mg/dL (9.8-20.1); Calc. Creatinine Clearance 131 mL/min (70-130); Calcium 9.2 mg/dL (7.8-10.44); Carbon Dioxide 26 mmol/L (23-31); Chloride 106 mmol/L (98-107); Estimated GFR 93; Glucose 142 mg/dL (80-115); Potassium 4.3 mmol/L (3.5-5.1); Sodium 141 mmol/L (136-145)
[2022-05-24] MEDS: methylPREDNISolone Sod Succ 40 MG VIAL IVP SCH ×2 (05:46→14:11)
[2022-05-24 06:12] LABS: Band 3 % (5-11); Lymphocytes 6 % (21-51); MDiff Complete? YES; Monocytes 2 % (0-10); Neutrophil 89 % (42-75)
[2022-05-24] MEDS: Amlodipine 5 MG TAB PO SCH (08:42)
[2022-05-24] MEDS: Famotidine 20 MG TAB PO SCH (08:42)
[2022-05-24] MEDS: hydrALAZINE 25 MG TAB PO SCH ×2 (09:11→14:11)
[2022-05-24 12:35] VITALS: BP 169/82; TEMP 98.7
[2022-05-24] MEDS: Acetaminophen 325 MG TAB PO PRN (12:59)
[2022-05-25 21:12] LABS: L.pneumophilia Abs <0.91 OD ratio (0.00-0.90)
== END 2022-05-24 15:56 | disposition home or self-care (01) | DRG 193 ==
LOC: ERS 23:11 → ERHOLD 05-22 01:46 → 2SW 05-22 15:01 → OBSVTOIN 05-23 08:26
PROVIDERS: ADMIT Hospitalist; ATTEND Hospitalist
DX: J18.9 Pneumonia, unspecified organism (principal); J96.01 Acute respiratory failure with hypoxia; C78.01 Secondary malignant neoplasm of right lung; Z20.822 Contact with and (suspected) exposure to COVID-19; C80.1 Malignant (primary) neoplasm, unspecified; I10 Essential (primary) hypertension; E66.9 Obesity, unspecified; Z68.37 Body mass index [BMI] 37.0-37.9, adult; Z87.891 Personal history of nicotine dependence; Z79.899 Other long term (current) drug therapy; Z90.710 Acquired absence of both cervix and uterus; Z98.890 Other specified postprocedural states; Z80.0 Family history of malignant neoplasm of digestive organs; Z80.1 Family history of malignant neoplasm of trachea, bronchus and lung
CPT/HCPCS: 36415; 71045; 71275; 74177; 80048; 80053; 83036; 83735; 83880; 84145; 84484; 85025; 86713; 87040; 87070; 87205; 87449; 87633; 93005; 96366; 96375; 96376; G0378; J0456; J0696; J1100; J1650; J2920; J3490; J7050; Q9967; U0002

== ENCOUNTER 2022-06-13 09:53 | Outpatient (CLI) | payer MEDICARE, OTHER | END 2022-06-13 09:54 | disposition home or self-care (01) | LOC: BICCT 09:53 | PROVIDERS: ATTEND Internal Medicine | DX: R06.00 Dyspnea, unspecified (principal); R91.8 Other nonspecific abnormal finding of lung field; R59.1 Generalized enlarged lymph nodes; J94.8 Other specified pleural conditions | CPT/HCPCS: 71250 ==

== ENCOUNTER 2022-06-23 07:26 | Day surgery (SDC) | payer MEDICARE, OTHER ==
[2022-06-22 12:12] VITALS: BMI 37.1
[2022-06-23] MEDS ORDERED: Ipratropium/Albuterol 3 ML NEB NEB SCH (08:45)
[2022-06-23] MEDS ORDERED: Sodium Chloride 0.9% 1,000 ML IV SCH (08:45)
[2022-06-23] MEDS ORDERED: Lidocaine 4% PF 5 ML AMP NEB SCH (08:45)
[2022-06-23] MEDS ORDERED: SUGAMMADEX SODIUM 200 MG/2 ML VIAL ONE (09:08)
[2022-06-23] MEDS ORDERED: fentaNYL PF 100 MCG/2 ML SYRINGE ONE (09:08)
[2022-06-23] MEDS ORDERED: Lidocaine 1% PF 5 ML VIAL ONE (10:04)
[2022-06-23] MEDS ORDERED: Dexamethasone 20 MG/5 ML VIAL ONE (10:04)
[2022-06-23] MEDS ORDERED: Ondansetron PF 4 MG/2 ML Vial ONE (10:04)
[2022-06-23] MEDS ORDERED: EPINEPHrine 1 MG/10 ML Abboject SYRINGE ONE ×2 (10:04→11:05)
[2022-06-23] MEDS ORDERED: Rocuronium Bromide 10 MG/ML (10ML VIAL) ONE (10:04)
[2022-06-23] MEDS ORDERED: PROPOFOL 200 MG/20 ML VIAL ONE (10:04)
[2022-06-23] MEDS ORDERED: Tranexamic Acid 1,000 MG/10 ML VIAL ONE (11:05)
[2022-06-23] MEDS ORDERED: fentaNYL 50 mcg/mL 1 mL Vial ONE (12:15)
== END 2022-06-23 14:50 | disposition home or self-care (01) ==
LOC: SDC 07:26
PROVIDERS: ATTEND Internal Medicine
PROC: 0BBF8ZX Excision of Right Lower Lung Lobe, Via Natural or Artificial Opening Endoscopic, Diagnostic (ICD-10-PCS; principal; 2022-06-23)
PROC: 0B9F8ZX Drainage of Right Lower Lung Lobe, Via Natural or Artificial Opening Endoscopic, Diagnostic (ICD-10-PCS; 2022-06-23)
PROC: 07B74ZX Excision of Thorax Lymphatic, Percutaneous Endoscopic Approach, Diagnostic (ICD-10-PCS; 2022-06-23)
DX: C34.31 Malignant neoplasm of lower lobe, right bronchus or lung (principal); C77.1 Secondary and unspecified malignant neoplasm of intrathoracic lymph nodes; I10 Essential (primary) hypertension; E66.9 Obesity, unspecified; Z68.37 Body mass index [BMI] 37.0-37.9, adult; Z87.891 Personal history of nicotine dependence; Z79.899 Other long term (current) drug therapy
CPT/HCPCS: 31624; 31628; 31652; 87070 ×2; 87075; 87102; 87116; 87205; 87206 ×2; 94640; J3010; 88112; 88173; 88305; 88341; 88342; J0171; J1100; J2405; J2704

== ENCOUNTER → 2022-07-06 | Outpatient (CLI) | payer MEDICARE, OTHER | LOC: PET 11:45 | PROVIDERS: ATTEND Internal Medicine | DX: C34.31 Malignant neoplasm of lower lobe, right bronchus or lung (principal); C96.9 Malignant neoplasm of lymphoid, hematopoietic and related tissue, unspecified | CPT/HCPCS: 78815; A9552 ==

== ENCOUNTER 2022-12-27 12:59 | Outpatient (CLI) | payer MEDICARE, OTHER | END 2022-12-27 13:00 | disposition home or self-care (01) | LOC: RAD 12:59 | PROVIDERS: ATTEND Family Medicine | DX: J18.9 Pneumonia, unspecified organism (principal); R09.81 Nasal congestion; Z20.822 Contact with and (suspected) exposure to COVID-19 | CPT/HCPCS: 36415; 71046; 80053; 85025; 87635 ==

== ENCOUNTER 2023-08-28 08:07 | Inpatient (IN) | payer MEDICARE, OTHER ==
[2023-08-28 09:07] LABS: Hematocrit 36.2 % (36.0-47.0); Mean Corpuscular HGB CONC 33.1 g/dL (32.0-36.0); Mean Corpuscular Hemoglobin 26.8 pg (27.0-31.0); Mean Platelet Volume 9.7 fL (7.4-10.4); Platelet Count 101 10x3/uL (130-400); RBC Distribution Width 19.2 % (11.5-14.5); Red Blood Cell (RBC) Count 4.47 mill/uL (4.20-5.40)
[2023-08-28 09:16] LABS: Bilirubin Small (Negative); Blood, Urine Large (Negative); Glucose, Urine (Dipstick) Negative (Negative); Ketone, Urine Negative (Negative); Leukocyte Large (Negative); Nitrite Positive (Negative); Protein, Urine (Dipstick) > or equal to 300 mg/dL (Neg-Trace); Specific Gravity, Urine 1.025 (1.005-1.030); pH, Urine 6.5 (5.0-9.0)
[2023-08-28 09:24] LABS: Clarity Turbid (Clear)
[2023-08-28 09:31] LABS: ALT (SGPT) 14 U/L (8-55); AST (SGOT) 26 U/L (5-34); Albumin 2.9 g/dL (3.4-4.8); Alkaline Phosphatase 72 U/L (40-110); Anion Gap 16 mmol/L (10-20); BUN (Urea Nitrogen) 13 mg/dL (9.8-20.1); Bilirubin, Total 0.4 mg/dL (0.2-1.2); Calc. Creatinine Clearance 0 mL/min (70-130); Calcium 8.6 mg/dL (7.8-10.44); Carbon Dioxide 22 mmol/L (23-31); Chloride 104 mmol/L (98-107); Estimated GFR 98; Globulin 3.3 g/dL (2.4-3.5); Glucose 99 mg/dL (80-115); Magnesium 1.8 mg/dL (1.6-2.6); Potassium 4.3 mmol/L (3.5-5.1); Protein, Total 6.2 g/dL (5.8-8.1); Sodium 138 mmol/L (136-145)
[2023-08-28 09:35] LABS: Troponin I 0.022 ng/mL (< 0.028)
[2023-08-28 09:39] LABS: Bacteria/HPF 3+ HPF (None Seen); CAUTI Indications for Culture Alt mental st,lethar; Squamous Epithelial 0-3 HPF (0-3); WBC/HPF Greater than 50 HPF (0-3)
[2023-08-28 09:40] LABS: Urine Culture Reflex Yes Yes
[2023-08-28 09:43] LABS: Influenza A by NAA Not Detected (NotDetected); Influenza B by NAA Not Detected (NotDetected); SARS-CoV-2 NAA Rapid Test Not Detected (NotDetected)
[2023-08-28] MEDS ORDERED: Cefepime 2 GM VIAL ONE (09:54)
[2023-08-28] MEDS ORDERED: Sodium Chloride 0.9% 100 ML ONE (09:54)
[2023-08-28] MEDS ORDERED: Bisacodyl 5 MG TAB PO PRN (10:47)
[2023-08-28] MEDS ORDERED: Bisacodyl 10 MG SUPP PR PRN (10:47)
[2023-08-28] MEDS ORDERED: Ondansetron PF 4 MG/2 ML Vial IVP PRN (10:47)
[2023-08-28] MEDS ORDERED: VANCO/CEFEPIME IVPB PRN (11:00)
[2023-08-28 11:02] LABS: Band 15 % (5-11); Large Platelets 0.9 % (0-5); Lymphocytes 12 % (21-51); Monocytes 16 % (0-10); Neutrophil 53 % (42-75); Nucleated RBC (Manual Ct) 2 % (0); Platelet Adequacy Comment Platelets Decreased; Polychromasia SLIGHT = 2-3 cells HPF (0-2); Reactive Lymphocytes 4 % (0-10)
[2023-08-28 12:05] LABS: Lactic Acid 1.5 mmol/L (0.5-2.2)
[2023-08-28] MEDS: Polyethylene Glycol 3350 17 GM Packet PO SCH (14:06)
[2023-08-28 14:11] VITALS: BMI 35.5
[2023-08-28] MEDS: Acetaminophen 325 MG TAB PO PRN (16:25)
[2023-08-28] MEDS: Cefepime 2 GM in Sodium Chloride 0.9% 100 ML IVPB SCH (18:18)
[2023-08-28] MEDS: Vancomycin (BATCH) 2.5 GM in Premix 1 BAG IVPB SCH (18:24)
[2023-08-28] MEDS: Senokot S 8.6-50 MG TAB PO SCH (20:07)
[2023-08-28] MEDS ORDERED: Vancomycin 1 GM in Sodium Chloride 0.9% 250 ML 300 ML IVPB SCH (21:00)
[2023-08-29] MEDS: Vancomycin (BATCH) 1.5 GM in Premix 1 BAG IVPB SCH (05:11)
[2023-08-29 06:03] LABS: Hematocrit 30.2 % (36.0-47.0); Hemoglobin 9.7 g/dL (12.0-16.0); Mean Corpuscular HGB CONC 32.1 g/dL (32.0-36.0); Mean Corpuscular Hemoglobin 26.7 pg (27.0-31.0); Mean Corpuscular Volume 83.2 fL (78.0-98.0); Mean Platelet Volume 9.2 fL (7.4-10.4); Platelet Count 110 10x3/uL (130-400); RBC Distribution Width 19.4 % (11.5-14.5); Red Blood Cell (RBC) Count 3.63 mill/uL (4.20-5.40)
[2023-08-29 06:20] LABS: Vancomycin, Random 16.9 ug/mL (See Comment)
[2023-08-29 06:22] LABS: ALT (SGPT) 10 U/L (8-55); AST (SGOT) 22 U/L (5-34); Albumin 2.4 g/dL (3.4-4.8); Alkaline Phosphatase 57 U/L (40-110); Anion Gap 13 mmol/L (10-20); BUN (Urea Nitrogen) 10 mg/dL (9.8-20.1); Bilirubin, Direct 0.1 mg/dL (0.1-0.3); Bilirubin, Total 0.4 mg/dL (0.2-1.2); Calc. Creatinine Clearance 161 mL/min (70-130); Calcium 8.1 mg/dL (7.8-10.44); Carbon Dioxide 21 mmol/L (23-31); Chloride 109 mmol/L (98-107); Estimated GFR 101; Glucose 90 mg/dL (80-115); Magnesium 1.9 mg/dL (1.6-2.6); Potassium 3.6 mmol/L (3.5-5.1); Protein, Total 5.8 g/dL (5.8-8.1); Sodium 139 mmol/L (136-145)
[2023-08-29 06:38] LABS: Hemoglobin A1c 5.8 % (4.0-6.0)
[2023-08-29 07:00] LABS: Anisocytosis SLIGHT = 6-15 cells HPF (0-5); Band 14 % (5-11); Lymphocytes 4 % (21-51); Metamyelocyte 1 % (0-0); Microcytosis SLIGHT = 6-15 cells HPF (0-5); Monocytes 9 % (0-10); Myelocyte 4 % (0-0); Neutrophil 68 % (42-75); Platelet Adequacy Comment Platelets Decreased; Polychromasia SLIGHT = 2-3 cells HPF (0-2)
[2023-08-29] MEDS: Polyethylene Glycol 3350 17 GM Packet PER TUBE SCH (07:57)
[2023-08-29 13:44] VITALS: BMI 35.5
[2023-08-30 05:53] LABS: #Basophils 0.06 10x3/uL (0.0-0.2); #Eosinphils Less than 0.03 10x3/uL (0.0-0.7); %Eosinophils 0.3 % (0.0-10.0); %Lymphocytes 11.3 % (21.0-51.0); %Neutrophils 55.8 % (42.0-75.0); Hematocrit 31.4 % (36.0-47.0); Hemoglobin 10.1 g/dL (12.0-16.0); Mean Corpuscular HGB CONC 32.2 g/dL (32.0-36.0); Mean Corpuscular Hemoglobin 26.6 pg (27.0-31.0); Mean Corpuscular Volume 82.6 fL (78.0-98.0); Mean Platelet Volume 9.4 fL (7.4-10.4); Platelet Count 107 10x3/uL (130-400); RBC Distribution Width 19.1 % (11.5-14.5)
[2023-08-30 06:22] LABS: Anion Gap 9 mmol/L (10-20); BUN (Urea Nitrogen) 6 mg/dL (9.8-20.1); Calc. Creatinine Clearance 159 mL/min (70-130); Calcium 8.2 mg/dL (7.8-10.44); Carbon Dioxide 23 mmol/L (23-31); Chloride 113 mmol/L (98-107); Estimated GFR 101; Glucose 88 mg/dL (80-115); Potassium 3.5 mmol/L (3.5-5.1); Sodium 141 mmol/L (136-145)
[2023-08-30 06:56] LABS: %Monocytes 16.3 % (0.0-10.0)
[2023-08-30 06:57] LABS: Platelet Adequacy Comment Platelets Decreased; Polychromasia SLIGHT = 2-3 cells HPF (0-2); Toxic Granulation SLIGHT
[2023-08-31 10:13] LABS: Hematocrit 30.1 % (36.0-47.0); Hemoglobin 9.8 g/dL (12.0-16.0); Mean Corpuscular HGB CONC 32.6 g/dL (32.0-36.0); Mean Corpuscular Hemoglobin 26.4 pg (27.0-31.0); Mean Corpuscular Volume 81.1 fL (78.0-98.0); Mean Platelet Volume 9.5 fL (7.4-10.4); Platelet Count 123 10x3/uL (130-400); RBC Distribution Width 19.2 % (11.5-14.5); Red Blood Cell (RBC) Count 3.71 mill/uL (4.20-5.40)
[2023-08-31 10:16] LABS: Anion Gap 12 mmol/L (10-20); BUN (Urea Nitrogen) 7 mg/dL (9.8-20.1); Calc. Creatinine Clearance 168 mL/min (70-130); Calcium 8.5 mg/dL (7.8-10.44); Carbon Dioxide 23 mmol/L (23-31); Chloride 113 mmol/L (98-107); Estimated GFR 102; Glucose 100 mg/dL (80-115); Potassium 3.6 mmol/L (3.5-5.1); Sodium 144 mmol/L (136-145)
[2023-08-31 10:21] LABS: Vancomycin, Random 32.6 ug/mL (See Comment)
[2023-08-31 11:02] LABS: Anisocytosis SLIGHT = 6-15 cells HPF (0-5); Band 6 % (5-11); Hypochromia SLIGHT = 6-15 cells HPF (0-5); Lymphocytes 10 % (21-51); Metamyelocyte 1 % (0-0); Monocytes 9 % (0-10); Neutrophil 75 % (42-75); Ovalocytes SLIGHT = 2-5 cells HPF (0-1); Platelet Adequacy Comment Platelets Normal; Polychromasia SLIGHT = 2-3 cells HPF (0-2); Smudge Cells 5.9 %
[2023-09-01 16:44] VITALS: BP 138/85; TEMP 98.3
== END 2023-09-01 17:44 | disposition home or self-care (01) | DRG 698 ==
LOC: ERS 08:07 → SUATTDRO 08:07 → ERHOLD 10:40 → T4-B 12:51
PROVIDERS: ADMIT Family Medicine; ATTEND Family Medicine
PROC: 0T9B70Z Drainage of Bladder with Drainage Device, Via Natural or Artificial Opening (ICD-10-PCS; principal; 2023-08-28)
PROC: 3E03329 Introduction of Other Anti-infective into Peripheral Vein, Percutaneous Approach (ICD-10-PCS; 2023-08-28)
DX: T83.511A Infection and inflammatory reaction due to indwelling urethral catheter, initial encounter (principal); A41.9 Sepsis, unspecified organism; D61.810 Antineoplastic chemotherapy induced pancytopenia; C34.90 Malignant neoplasm of unspecified part of unspecified bronchus or lung; G82.20 Paraplegia, unspecified; C79.51 Secondary malignant neoplasm of bone; T83.518A Infection and inflammatory reaction due to other urinary catheter, initial encounter; K59.00 Constipation, unspecified; I10 Essential (primary) hypertension; H92.01 Otalgia, right ear; Z79.899 Other long term (current) drug therapy; Z90.710 Acquired absence of both cervix and uterus; Z98.890 Other specified postprocedural states; Z87.891 Personal history of nicotine dependence; N31.9 Neuromuscular dysfunction of bladder, unspecified
CPT/HCPCS: 36415; 70450; 71045; 71250; 72125; 74177; 74230; 80048; 80053; 80076; 80202; 81001; 83036; 83605; 83735; 84443; 84484; 85025; 86850; 86900; 86901; 87040; 87077; 87086; 87149; 93005; 96361; 96365; 96366; J0692; J3370; J3490

== ENCOUNTER 2023-12-13 17:53 | Inpatient (IN) | payer MEDICARE, OTHER ==
[2023-12-13 18:45] LABS: #Basophils 0.03 10x3/uL (0.0-0.2); %Basophils 0.6 % (0.0-1.0); %Eosinophils 4.7 % (0.0-10.0); %Lymphocytes 21.6 % (21.0-51.0); %Monocytes 11.2 % (0.0-10.0); %Neutrophils 60.8 % (42.0-75.0); Hematocrit 37.4 % (36.0-47.0); Hemoglobin 11.9 g/dL (12.0-16.0); Mean Corpuscular HGB CONC 31.8 g/dL (32.0-36.0); Mean Corpuscular Hemoglobin 27.5 pg (27.0-31.0); Mean Corpuscular Volume 86.4 fL (78.0-98.0); Platelet Count 153 10x3/uL (130-400); Red Blood Cell (RBC) Count 4.33 mill/uL (4.20-5.40)
[2023-12-13 18:53] LABS: ALT (SGPT) 11 U/L (8-55); AST (SGOT) 17 U/L (5-34); Albumin 3.2 g/dL (3.4-4.8); Alkaline Phosphatase 54 U/L (40-110); Anion Gap 14 mmol/L (10-20); BUN (Urea Nitrogen) 11 mg/dL (9.8-20.1); Bilirubin, Total 0.2 mg/dL (0.2-1.2); Calc. Creatinine Clearance 0 mL/min (70-130); Calcium 9.8 mg/dL (7.8-10.44); Carbon Dioxide 24 mmol/L (23-31); Chloride 107 mmol/L (98-107); Estimated GFR 97; Globulin 3.8 g/dL (2.4-3.5); Glucose 94 mg/dL (80-115); Potassium 4.3 mmol/L (3.5-5.1); Sodium 141 mmol/L (136-145)
[2023-12-13 18:56] LABS: Troponin I Less than 0.010 ng/mL (< 0.028)
[2023-12-13] MEDS ORDERED: Ketorolac Tromethamine 30 MG (1 mL) VIAL ONE (19:07)
[2023-12-13] MEDS ORDERED: LevoFLOXacin 750 mg/D5W 150 ml Premix Bag ONE (19:15)
[2023-12-13] MEDS ORDERED: Morphine 2 MG/ML VIAL ONE (21:32)
[2023-12-13] MEDS ORDERED: Ondansetron PF 4 MG/2 ML Vial IVP PRN (21:44)
[2023-12-13 23:11] VITALS: BMI 30.2
[2023-12-13] MEDS: Enoxaparin 40 MG (0.4 mL) SYRINGE SC SCH (23:37)
[2023-12-14] MEDS: Enoxaparin 80 MG (0.8 mL) SYRINGE SC SCH ×2 (00:12→13:20)
[2023-12-14 00:32] LABS: Bilirubin Negative (Negative); Blood, Urine 1+ (Negative); CAUTI Indications for Culture Alt mental st,lethar; Calcium Oxalate Crystals Rare HPF (None Seen); Clarity Clear (Clear); Glucose, Urine (Dipstick) Normal (Negative); Ketone, Urine Negative (Negative); Leukocyte 75 Leu/uL (Negative); Nitrite Negative (Negative); Protein, Urine (Dipstick) 20 mg/dL (Neg-Trace); RBC/HPF 21-50 HPF (0-3); Squamous Epithelial 0-3 HPF (0-3); Urobilinogen Normal mg/dL (Less than 2); Yeast-Budding Rare HPF (None Seen)
[2023-12-14 00:34] LABS: Bacteria/HPF 1+ HPF (None Seen); Urine Culture Reflex Yes Yes
[2023-12-14] MEDS: traMADol HCl 50 MG TAB PO PRN (06:10)
[2023-12-14 06:21] LABS: #Basophils 0.03 10x3/uL (0.0-0.2); %Basophils 0.7 % (0.0-1.0); %Eosinophils 5.7 % (0.0-10.0); %Lymphocytes 20.9 % (21.0-51.0); %Monocytes 13.4 % (0.0-10.0); %Neutrophils 58.3 % (42.0-75.0); Hematocrit 36.4 % (36.0-47.0); Hemoglobin 11.4 g/dL (12.0-16.0); Mean Corpuscular HGB CONC 31.3 g/dL (32.0-36.0); Mean Corpuscular Hemoglobin 27.4 pg (27.0-31.0); Mean Corpuscular Volume 87.5 fL (78.0-98.0); Mean Platelet Volume 9.3 fL (7.4-10.4); Platelet Count 137 10x3/uL (130-400); RBC Distribution Width 16.9 % (11.5-14.5); Red Blood Cell (RBC) Count 4.16 mill/uL (4.20-5.40)
[2023-12-14 06:37] LABS: Anion Gap 11 mmol/L (10-20); BUN (Urea Nitrogen) 12 mg/dL (9.8-20.1); Calc. Creatinine Clearance 133 mL/min (70-130); Calcium 9.1 mg/dL (7.8-10.44); Carbon Dioxide 23 mmol/L (23-31); Chloride 108 mmol/L (98-107); Estimated GFR 101; Glucose 86 mg/dL (80-115); Potassium 3.8 mmol/L (3.5-5.1); Sodium 138 mmol/L (136-145)
[2023-12-14] MEDS: Acetaminophen 325 MG TAB PO PRN (08:45)
[2023-12-14] MEDS ORDERED: FLU (Fluad Triv) TS24-25 (65UP)/MF59C/PF 45 MCG/0.5 ML Syringe IM ONE (09:00)
[2023-12-14] MEDS: Morphine 4 MG/ML VIAL SLOW IVP SCH (09:30)
[2023-12-14] MEDS ORDERED: Bisacodyl 10 MG SUPP PR PRN (10:04)
[2023-12-14] MEDS ORDERED: Polyethylene Glycol 3350 17 GM Packet PO PRN (10:04)
[2023-12-14] MEDS: HYDROcodone/Acetaminophen 5/325 mg Tablet PO PRN (17:14)
[2023-12-14] MEDS: Morphine 4 MG/ML VIAL SLOW IVP PRN (19:48)
[2023-12-14] MEDS: LevoFLOXacin 750 mg/D5W 750 MG in Premix 1 BAG IVPB SCH (19:49)
[2023-12-15 05:05] LABS: #Basophils 0.03 10x3/uL (0.0-0.2); %Basophils 0.6 % (0.0-1.0); %Eosinophils 6.7 % (0.0-10.0); %Lymphocytes 16.9 % (21.0-51.0); %Monocytes 10.7 % (0.0-10.0); %Neutrophils 64.3 % (42.0-75.0); Hematocrit 36.9 % (36.0-47.0); Hemoglobin 11.4 g/dL (12.0-16.0); Mean Corpuscular HGB CONC 30.9 g/dL (32.0-36.0); Mean Corpuscular Hemoglobin 27.8 pg (27.0-31.0); Platelet Count 139 10x3/uL (130-400); RBC Distribution Width 16.8 % (11.5-14.5)
[2023-12-15 05:34] LABS: Anion Gap 11 mmol/L (10-20); BUN (Urea Nitrogen) 13 mg/dL (9.8-20.1); Calc. Creatinine Clearance 106 mL/min (70-130); Calcium 9.1 mg/dL (7.8-10.44); Carbon Dioxide 25 mmol/L (23-31); Chloride 108 mmol/L (98-107); Estimated GFR 95; Glucose 95 mg/dL (80-115); Potassium 4.1 mmol/L (3.5-5.1); Sodium 140 mmol/L (136-145)
[2023-12-15 07:54] VITALS: BP 152/84; TEMP 97.8
== END 2023-12-15 08:18 | disposition home or self-care (01) | DRG 556 ==
LOC: ERS 17:53 → T4-A 21:34 → OBSVTOIN 12-14 10:08
PROVIDERS: ADMIT Internal Medicine; ATTEND Internal Medicine
DX: M79.81 Nontraumatic hematoma of soft tissue (principal); N39.0 Urinary tract infection, site not specified; G82.20 Paraplegia, unspecified; I82.402 Acute embolism and thrombosis of unspecified deep veins of left lower extremity; C34.90 Malignant neoplasm of unspecified part of unspecified bronchus or lung; C79.51 Secondary malignant neoplasm of bone; J90 Pleural effusion, not elsewhere classified; R53.1 Weakness; Z90.710 Acquired absence of both cervix and uterus; Z98.890 Other specified postprocedural states; Z87.891 Personal history of nicotine dependence; N31.9 Neuromuscular dysfunction of bladder, unspecified; Z79.899 Other long term (current) drug therapy; I10 Essential (primary) hypertension
CPT/HCPCS: 36415; 36416; 71045; 71275; 80048; 80053; 81001; 84484; 85025; 87077; 87086; 87186; 93005; 93970; 96365; 96372; 96375; G0378; J1650; J1885; J1956; J2272; Q9967

== ENCOUNTER 2023-12-31 11:05 | Inpatient (IN) | payer MEDICARE, OTHER ==
[2023-12-31 11:48] LABS: Analyzer IN Cardio ER; Base Excess 1.2 mEq/L (-2.0 to +3.0); Calcium, Ionized (venous) 1.16 mmol/L (1.16-1.32); Chloride (VBG) 100 mmol/L (98-106); Hematocrit-VBG 35 % (36.0-47.0); Hemoglobin (Hb) 11.8 g/dL (11.7-16.1); Potassium (VBG) 3.73 mmol/L (3.70-5.30); Sodium 136 mmol/L (133-146); pH (venous) 7.369 (7.32-7.43)
[2023-12-31 12:03] LABS: #Basophils Less than 0.03 10x3/uL (0.0-0.2); %Basophils 0.2 % (0.0-1.0); %Eosinophils 1.9 % (0.0-10.0); %Lymphocytes 10.9 % (21.0-51.0); %Monocytes 10.7 % (0.0-10.0); %Neutrophils 74.2 % (42.0-75.0); Hematocrit 34.9 % (36.0-47.0); Hemoglobin 11.3 g/dL (12.0-16.0); Mean Corpuscular HGB CONC 32.4 g/dL (32.0-36.0); Mean Corpuscular Hemoglobin 27.8 pg (27.0-31.0); Mean Corpuscular Volume 85.7 fL (78.0-98.0); Mean Platelet Volume 9.1 fL (7.4-10.4); Platelet Count 131 10x3/uL (130-400); RBC Distribution Width 17.5 % (11.5-14.5); Red Blood Cell (RBC) Count 4.07 mill/uL (4.20-5.40)
[2023-12-31 12:18] LABS: Prothrombin Time 12.9 sec (12.0-14.7)
[2023-12-31 12:19] LABS: PTT 41.6 sec (22.9-36.1)
[2023-12-31 12:28] LABS: Bilirubin Negative (Negative); Blood, Urine Large (Negative); Glucose, Urine (Dipstick) Negative (Negative); Ketone, Urine Negative (Negative); Leukocyte Trace (Negative); Nitrite Negative (Negative); Protein, Urine (Dipstick) Negative (Neg-Trace); Urobilinogen 0.2 mg/dL (Less than 2)
[2023-12-31 12:34] LABS: ALT (SGPT) 12 U/L (8-55); AST (SGOT) 14 U/L (5-34); Albumin 2.9 g/dL (3.4-4.8); Alkaline Phosphatase 54 U/L (40-110); Anion Gap 13 mmol/L (10-20); BUN (Urea Nitrogen) 13 mg/dL (9.8-20.1); Bilirubin, Total 0.3 mg/dL (0.2-1.2); CK (CPK) 46 U/L (29-168); Calc. Creatinine Clearance 0 mL/min (70-130); Calcium 8.8 mg/dL (7.8-10.44); Carbon Dioxide 24 mmol/L (23-31); Chloride 104 mmol/L (98-107); Estimated GFR 100; Globulin 3.1 g/dL (2.4-3.5); Glucose 84 mg/dL (80-115); Lipase 5 U/L (8-78); Magnesium 1.8 mg/dL (1.6-2.6); Potassium 3.7 mmol/L (3.5-5.1); Sodium 137 mmol/L (136-145); Troponin I Less than 0.010 ng/mL (< 0.028)
[2023-12-31 12:44] LABS: CAUTI Indications for Culture Acute Hematuria; Calcium Oxalate Crystals 1+ HPF (None Seen); RBC/HPF Greater than 50 HPF (0-3); Squamous Epithelial 0-3 HPF (0-3)
[2023-12-31 12:45] LABS: Clarity Cloudy (Clear)
[2023-12-31] MEDS ORDERED: Iopamidol-370 76% 500 ML MDV (1 ML CHARGE) ONE (12:45)
[2023-12-31 13:05] LABS: Bacteria/HPF 1+ HPF (None Seen); Yeast-Budding Rare HPF (None Seen)
[2023-12-31 13:06] LABS: Urine Culture Reflex Yes Yes
[2023-12-31] MEDS ORDERED: Cefepime 2 GM VIAL ONE (13:39)
[2023-12-31] MEDS: Vancomycin (BATCH) 2 GM in Premix 1 BAG IVPB SCH (16:37)
[2023-12-31] MEDS: Lactated Ringer's 1,000 ML IV SCH (16:42)
[2023-12-31 17:33] VITALS: BMI 32.5
[2023-12-31] MEDS: Acetaminophen 325 MG TAB PO PRN (21:48)
[2023-12-31] MEDS: Enoxaparin 100 MG (1 mL) SYRINGE SC SCH (21:49)
[2024-01-01] MEDS: Cefepime 2 GM in Sodium Chloride 0.9% 100 ML IVPB SCH (03:14)
[2024-01-01] MEDS: Vancomycin (BATCH) 1.5 GM in Premix 1 BAG IVPB SCH (05:39)
[2024-01-01 06:05] LABS: Vancomycin, Random 4.7 ug/mL (See Comment)
[2024-01-01 06:12] LABS: #Basophils Less than 0.03 10x3/uL (0.0-0.2); %Basophils 0.5 % (0.0-1.0); %Eosinophils 1.5 % (0.0-10.0); %Lymphocytes 12.6 % (21.0-51.0); %Monocytes 11.9 % (0.0-10.0); %Neutrophils 70.8 % (42.0-75.0); Anion Gap 12 mmol/L (10-20); BUN (Urea Nitrogen) 10 mg/dL (9.8-20.1); Calc. Creatinine Clearance 165 mL/min (70-130); Calcium 8.5 mg/dL (7.8-10.44); Carbon Dioxide 20 mmol/L (23-31); Chloride 105 mmol/L (98-107); Estimated GFR 104; Glucose 93 mg/dL (80-115); Hematocrit 32.6 % (36.0-47.0); Hemoglobin 10.7 g/dL (12.0-16.0); Mean Corpuscular HGB CONC 32.8 g/dL (32.0-36.0); Mean Corpuscular Hemoglobin 27.8 pg (27.0-31.0); Mean Corpuscular Volume 84.7 fL (78.0-98.0); Platelet Count 125 10x3/uL (130-400); Potassium 4.1 mmol/L (3.5-5.1); RBC Distribution Width 17.4 % (11.5-14.5); Red Blood Cell (RBC) Count 3.85 mill/uL (4.20-5.40); Sodium 133 mmol/L (136-145)
[2024-01-01] MEDS: Pantoprazole 40 MG VIAL IVP SCH (09:00)
[2024-01-01] MEDS: Budesonide DR 3 MG CAP PO SCH (10:16)
[2024-01-01] MEDS: Dexamethasone 4 mg/ml Vial SLOW IVP SCH (10:16)
[2024-01-01] MEDS: Mesalamine DR 400 mg Capsule PO SCH (10:24)
[2024-01-01] MEDS: FLU (Fluad Triv) TS24-25 (65UP)/MF59C/PF 45 MCG/0.5 ML Syringe IM ONE (10:24)
[2024-01-01] MEDS: Vancomycin (BATCH) 1.75 GM in Premix 1 BAG IVPB SCH (17:26)
[2024-01-01] MEDS: Morphine 2 MG/ML VIAL SLOW IVP PRN (18:37)
[2024-01-02 06:02] LABS: #Basophils Less than 0.03 10x3/uL (0.0-0.2); %Basophils 0.5 % (0.0-1.0); %Eosinophils 1.5 % (0.0-10.0); %Lymphocytes 10.4 % (21.0-51.0); %Monocytes 11.9 % (0.0-10.0); Hematocrit 31.7 % (36.0-47.0); Hemoglobin 10.5 g/dL (12.0-16.0); Mean Corpuscular HGB CONC 33.1 g/dL (32.0-36.0); Mean Corpuscular Volume 84.5 fL (78.0-98.0); Mean Platelet Volume 8.8 fL (7.4-10.4); Platelet Count 138 10x3/uL (130-400); RBC Distribution Width 16.9 % (11.5-14.5); Red Blood Cell (RBC) Count 3.75 mill/uL (4.20-5.40)
[2024-01-02 06:07] LABS: Anion Gap 13 mmol/L (10-20); BUN (Urea Nitrogen) 9 mg/dL (9.8-20.1); Calc. Creatinine Clearance 150 mL/min (70-130); Calcium 8.4 mg/dL (7.8-10.44); Carbon Dioxide 20 mmol/L (23-31); Chloride 102 mmol/L (98-107); Estimated GFR 102; Glucose 81 mg/dL (80-115); Magnesium 1.8 mg/dL (1.6-2.6); Potassium 3.7 mmol/L (3.5-5.1); Sodium 131 mmol/L (136-145)
[2024-01-02 08:52] VITALS: BMI 32.5
[2024-01-02] MEDS ORDERED: Electrolyte Replacement Protocol FS PRN (10:30)
[2024-01-02] MEDS: Magnesium 2 GM/50 ML(in water) 2 GM in Premix 1 BAG IVPB SCH (11:06)
[2024-01-02] MEDS: Amino Acids 4.25 %/Dextrose 5% 1,000 ML IV SCH (11:34)
[2024-01-03] MEDS: Amino Acids 4.25 %/Dextrose 5% 2,000 ML IV SCH (00:49)
[2024-01-03 05:38] LABS: Vancomycin, Random 24.6 ug/mL (See Comment)
[2024-01-03 05:40] LABS: Anion Gap 15 mmol/L (10-20); BUN (Urea Nitrogen) 15 mg/dL (9.8-20.1); Calc. Creatinine Clearance 165 mL/min (70-130); Calcium 8.3 mg/dL (7.8-10.44); Carbon Dioxide 19 mmol/L (23-31); Chloride 106 mmol/L (98-107); Estimated GFR 104; Glucose 107 mg/dL (80-115); Magnesium 2.1 mg/dL (1.6-2.6); Potassium 3.6 mmol/L (3.5-5.1); Sodium 136 mmol/L (136-145)
[2024-01-03 08:46] LABS: #Basophils Less than 0.03 10x3/uL (0.0-0.2); %Basophils 0.5 % (0.0-1.0); %Eosinophils 0.8 % (0.0-10.0); %Lymphocytes 13.6 % (21.0-51.0); %Monocytes 12.3 % (0.0-10.0); %Neutrophils 69.8 % (42.0-75.0); Hematocrit 33.7 % (36.0-47.0); Hemoglobin 11.3 g/dL (12.0-16.0); Mean Corpuscular HGB CONC 33.5 g/dL (32.0-36.0); Mean Corpuscular Volume 83.6 fL (78.0-98.0); Mean Platelet Volume 9.4 fL (7.4-10.4); Platelet Count 117 10x3/uL (130-400); RBC Distribution Width 16.7 % (11.5-14.5); Red Blood Cell (RBC) Count 4.03 mill/uL (4.20-5.40)
[2024-01-03] MEDS ORDERED: Polyethylene Glycol 3350 17 GM Packet PO PRN (15:51)
[2024-01-03] MEDS: Amoxicillin/Potassium Clav 875 MG TAB PO SCH (17:59)
[2024-01-03] MEDS: Benzonatate 100 MG CAP PO PRN (18:01)
[2024-01-04] MEDS: QUEtiapine 25 MG TAB PO SCH (05:20)
[2024-01-04 05:46] LABS: #Basophils Less than 0.03 10x3/uL (0.0-0.2); %Basophils 0.5 % (0.0-1.0); %Eosinophils 1.2 % (0.0-10.0); %Lymphocytes 10.8 % (21.0-51.0); %Monocytes 11.5 % (0.0-10.0); %Neutrophils 71.6 % (42.0-75.0); Hematocrit 32.4 % (36.0-47.0); Hemoglobin 10.6 g/dL (12.0-16.0); Mean Corpuscular HGB CONC 32.7 g/dL (32.0-36.0); Mean Corpuscular Hemoglobin 27.7 pg (27.0-31.0); Mean Corpuscular Volume 84.6 fL (78.0-98.0); Mean Platelet Volume 9.1 fL (7.4-10.4); Platelet Count 138 10x3/uL (130-400); RBC Distribution Width 16.6 % (11.5-14.5); Red Blood Cell (RBC) Count 3.83 mill/uL (4.20-5.40)
[2024-01-04 06:21] LABS: Anion Gap 13 mmol/L (10-20); BUN (Urea Nitrogen) 15 mg/dL (9.8-20.1); Calc. Creatinine Clearance 162 mL/min (70-130); Calcium 8.4 mg/dL (7.8-10.44); Carbon Dioxide 21 mmol/L (23-31); Chloride 106 mmol/L (98-107); Estimated GFR 104; Glucose 95 mg/dL (80-115); Potassium 3.2 mmol/L (3.5-5.1); Sodium 137 mmol/L (136-145)
[2024-01-04 08:43] VITALS: TEMP 98.7
[2024-01-04] MEDS: Potassium Chloride 20 MEQ TAB PO SCH ×3 (09:38→11:36)
[2024-01-04] MEDS: Furosemide 40 MG (4 mL) VIAL SLOW IVP SCH (11:36)
[2024-01-04 17:14] VITALS: BP 151/85
== END 2024-01-04 17:09 | disposition home health service (06) | DRG 698 ==
LOC: ERS 11:05 → T4-B 15:52
PROVIDERS: ADMIT Family Medicine; ATTEND Family Medicine
DX: T83.511A Infection and inflammatory reaction due to indwelling urethral catheter, initial encounter (principal); G93.41 Metabolic encephalopathy; C34.90 Malignant neoplasm of unspecified part of unspecified bronchus or lung; H65.91 Unspecified nonsuppurative otitis media, right ear; E87.6 Hypokalemia; Z66 Do not resuscitate; I10 Essential (primary) hypertension; Z90.710 Acquired absence of both cervix and uterus; Z98.890 Other specified postprocedural states; G83.9 Paralytic syndrome, unspecified; Z79.899 Other long term (current) drug therapy; Z87.891 Personal history of nicotine dependence
CPT/HCPCS: 36415; 70450; 71275; 72125; 74177; 74230; 80048; 80053; 80202; 81001; 82550; 82805; 83605; 83690; 83735; 83880; 84145; 84443; 84484; 85025; 85610; 85730; 87040; 87077; 87086; 87186; 87428; 93005; 96365; 96375; 97139; J0692; J1100; J1650; J1940; J2272; J2470; J3370; J3475; J7120; Q9967

== ENCOUNTER 2024-01-05 19:21 | Inpatient (IN) | payer MEDICARE, OTHER ==
[2024-01-05] MEDS ORDERED: Albuterol 2.5 MG (3 mL) NEB ONE (20:17)
[2024-01-05 20:31] LABS: Actual Bicarbonate (HCO3v) 19.6 mEq/L (22-28); Analyzer IN Cardio ER; Base Excess -4.3 mEq/L (-2.0 to +3.0); Calcium, Ionized (venous) 1.16 mmol/L (1.16-1.32); Chloride (VBG) 103 mmol/L (98-106); Hematocrit-VBG 41 % (36.0-47.0); Hemoglobin (Hb) 13.8 g/dL (11.7-16.1); Sodium 137 mmol/L (133-146); pH (venous) 7.394 (7.32-7.43)
[2024-01-05 21:05] LABS: Bilirubin Negative (Negative); Blood, Urine 3+ (Negative); CAUTI Indications for Culture Alt mental st,lethar; Calcium Oxalate Crystals 2+ HPF (None Seen); Clarity Extra Turbid (Clear); Glucose, Urine (Dipstick) Normal (Negative); Ketone, Urine Negative (Negative); Leukocyte 25 Leu/uL (Negative); Mucous/LPF Rare LPF (<2+); Nitrite Negative (Negative); Protein, Urine (Dipstick) 70 mg/dL (Neg-Trace); RBC/HPF Greater than 50 HPF (0-3); Renal Epithelial 0-3 HPF (None Seen); Specific Gravity, Urine 1.041 (1.002-1.036); Squamous Epithelial None Seen HPF (0-3); Urobilinogen Normal mg/dL (Less than 2); pH, Urine 5.5 (5.0-9.0)
[2024-01-05 21:12] LABS: Hematocrit 39.9 % (36.0-47.0); Hemoglobin 12.9 g/dL (12.0-16.0); Mean Corpuscular HGB CONC 32.3 g/dL (32.0-36.0); Mean Corpuscular Hemoglobin 27.7 pg (27.0-31.0); Mean Corpuscular Volume 85.6 fL (78.0-98.0); Mean Platelet Volume 8.5 fL (7.4-10.4); Platelet Count 146 10x3/uL (130-400); RBC Distribution Width 17.3 % (11.5-14.5); Red Blood Cell (RBC) Count 4.66 mill/uL (4.20-5.40)
[2024-01-05 21:28] LABS: Troponin I 0.015 ng/mL (< 0.028)
[2024-01-05 21:43] LABS: Band 36 % (5-11); Lymphocytes 4 % (21-51); Metamyelocyte 3 % (0-0); Monocytes 5 % (0-10); Myelocyte 1 % (0-0); Neutrophil 51 % (42-75); Platelet Adequacy Comment Platelets Normal; Polychromasia SLIGHT = 2-3 cells HPF (0-2); Tear Drops SLIGHT = 2-5 cells HPF (0-1); Vacuoles SLIGHT
[2024-01-05 21:44] LABS: Bacteria/HPF 1+ HPF (None Seen)
[2024-01-05 21:45] LABS: Urine Culture Reflex No No
[2024-01-05 22:05] LABS: ALT (SGPT) 15 U/L (8-55); AST (SGOT) 21 U/L (5-34); Albumin 3.3 g/dL (3.4-4.8); Alkaline Phosphatase 54 U/L (40-110); Anion Gap 18 mmol/L (10-20); BUN (Urea Nitrogen) 27 mg/dL (9.8-20.1); Bilirubin, Total 0.3 mg/dL (0.2-1.2); Calc. Creatinine Clearance 0 mL/min (70-130); Calcium 9.4 mg/dL (7.8-10.44); Carbon Dioxide 16 mmol/L (23-31); Chloride 106 mmol/L (98-107); Estimated GFR 100; Globulin 3.5 g/dL (2.4-3.5); Glucose 148 mg/dL (80-115); Potassium 3.6 mmol/L (3.5-5.1); Protein, Total 6.8 g/dL (5.8-8.1); Sodium 136 mmol/L (136-145)
[2024-01-05] MEDS ORDERED: traMADol HCl 50 MG TAB PO PRN (22:54)
[2024-01-05] MEDS ORDERED: Ondansetron PF 4 MG/2 ML Vial IVP PRN (22:54)
[2024-01-05] MEDS ORDERED: Ondansetron ODT 4 MG TAB PO PRN (22:54)
[2024-01-05] MEDS ORDERED: cefTRIAXone (ROCEPHIN) 2 GM VIAL ONE (23:56)
[2024-01-06 00:34] LABS: Lactic Acid 5.76 mmol/L (0.5-2.2)
[2024-01-06] MEDS: Vancomycin (BATCH) 2.5 GM in Premix 1 BAG IVPB SCH (01:28)
[2024-01-06 01:56] VITALS: BMI 31.9
[2024-01-06 05:00] LABS: Hemoglobin 11.5 g/dL (12.0-16.0); Mean Corpuscular HGB CONC 31.9 g/dL (32.0-36.0); Mean Corpuscular Hemoglobin 27.4 pg (27.0-31.0); Mean Corpuscular Volume 85.9 fL (78.0-98.0); Mean Platelet Volume 8.9 fL (7.4-10.4); Platelet Count 131 10x3/uL (130-400); RBC Distribution Width 17.5 % (11.5-14.5); Red Blood Cell (RBC) Count 4.19 mill/uL (4.20-5.40)
[2024-01-06 05:33] LABS: ALT (SGPT) 11 U/L (8-55); AST (SGOT) 14 U/L (5-34); Alkaline Phosphatase 47 U/L (40-110); Anion Gap 18 mmol/L (10-20); BUN (Urea Nitrogen) 21 mg/dL (9.8-20.1); Bilirubin, Total 0.3 mg/dL (0.2-1.2); Calc. Creatinine Clearance 131 mL/min (70-130); Calcium 9.2 mg/dL (7.8-10.44); Carbon Dioxide 18 mmol/L (23-31); Chloride 106 mmol/L (98-107); Estimated GFR 99; Globulin 3.4 g/dL (2.4-3.5); Glucose 129 mg/dL (80-115); Potassium 3.9 mmol/L (3.5-5.1); Protein, Total 6.4 g/dL (5.8-8.1); Sodium 138 mmol/L (136-145)
[2024-01-06 05:50] LABS: Band 42 % (5-11); Lymphocytes 1 % (21-51); Metamyelocyte 4 % (0-0); Monocytes 6 % (0-10); Myelocyte 1 % (0-0); Neutrophil 46 % (42-75); Ovalocytes SLIGHT = 2-5 cells HPF (0-1); Platelet Adequacy Comment Platelets Normal; Polychromasia SLIGHT = 2-3 cells HPF (0-2); Toxic Granulation SLIGHT; Vacuoles SLIGHT
[2024-01-06] MEDS: Ampicillin/Sulbactam 3 GM in Sodium Chloride 0.9% 100 ML IVPB SCH ×2 (06:10→15:45)
[2024-01-06] MEDS: Famotidine/PF 20 mg/2ml Vial SLOW IVP SCH (08:38)
[2024-01-06] MEDS: Enoxaparin 40 MG (0.4 mL) SYRINGE SC SCH (08:38)
[2024-01-06] MEDS: Floranex 1 GM Packet PO SCH (08:38)
[2024-01-06] MEDS: Famotidine 20 MG TAB PO SCH (08:39)
[2024-01-06] MEDS: Pantoprazole DR 40 MG TAB PO SCH (08:39)
[2024-01-06] MEDS: Budesonide DR 3 MG CAP PO SCH (08:39)
[2024-01-06] MEDS: Dexamethasone 4 MG TAB PO SCH (08:39)
[2024-01-06] MEDS: Gabapentin 100 MG CAP PO SCH (20:48)
[2024-01-06] MEDS: Melatonin 3 MG TAB PO SCH (20:48)
[2024-01-06] MEDS: Acetaminophen 325 MG TAB PO PRN (20:48)
[2024-01-07] MEDS: Scopolamine 1 mg/72 hour Patch TD SCH (11:07)
[2024-01-07] MEDS: Dronabinol 2.5 MG CAP PO SCH (16:41)
[2024-01-07] MEDS: Ampicillin/Sulbactam 3 GM VIAL ONE ×2 (16:41→22:15)
[2024-01-08] MEDS ORDERED: Ipratropium/Albuterol 3 ML NEB NEB PRN (17:57)
[2024-01-08] MEDS ORDERED: Hyoscyamine SL 0.125 MG TAB SL PRN (17:58)
[2024-01-08] MEDS ORDERED: Acetaminophen 650 MG Suppository PR PRN (17:58)
[2024-01-08] MEDS ORDERED: Atropine Sulfate 1% Ophth Soln 5 ml Bottle SL PRN (17:58)
[2024-01-08] MEDS ORDERED: HYDROmorphone 0.5 MG/0.5 ML SYRINGE SLOW IVP PRN (17:58)
[2024-01-08] MEDS: Furosemide 20 MG (2 mL) VIAL SLOW IVP SCH (18:28)
[2024-01-08] MEDS: methylPREDNISolone Sod Succ/PF 125 MG in Sodium Chloride 0.9% 250 ML 250 ML IVPB SCH (18:28)
[2024-01-08] MEDS: Lorazepam 2 MG/ML VIAL SLOW IVP PRN (18:28)
[2024-01-08] MEDS: Ipratropium/Albuterol 3 ML NEB NEB SCH (19:45)
[2024-01-09] MEDS: Glycopyrrolate 0.2 MG/ML 5 ML SYRINGE SLOW IVP PRN (01:07)
[2024-01-09] MEDS: Morphine 2 MG/ML VIAL SLOW IVP PRN (20:18)
[2024-01-10] MEDS: FLU (Fluad Triv) TS24-25 (65UP)/MF59C/PF 45 MCG/0.5 ML Syringe IM ONE (07:25)
[2024-01-10 11:11] VITALS: TEMP 97.7
[2024-01-10] MEDS: Morphine 10 MG/0.5 ML ORAL SYRINGE SL PRN (14:11)
[2024-01-10 16:29] VITALS: BP 139/78
== END 2024-01-10 16:14 | disposition hospice, home (50) | DRG 177 ==
LOC: ERS 19:21 → T4-A 22:57 → OBSVTOIN 01-06 15:07
PROVIDERS: ADMIT Internal Medicine; ATTEND Hospitalist
DX: J69.0 Pneumonitis due to inhalation of food and vomit (principal); J96.01 Acute respiratory failure with hypoxia; C34.90 Malignant neoplasm of unspecified part of unspecified bronchus or lung; G82.20 Paraplegia, unspecified; Z66 Do not resuscitate; Z79.899 Other long term (current) drug therapy; Z88.8 Allergy status to other drugs, medicaments and biological substances; Z90.710 Acquired absence of both cervix and uterus; Z98.890 Other specified postprocedural states; K21.9 Gastro-esophageal reflux disease without esophagitis
CPT/HCPCS: 36415; 36416; 51701; 70450; 71275; 74177; 80053; 81001; 82805; 83605; 83880; 84484; 85025; 87040; 93005; 94640; 96372; 96374; 96375; 96376; G0378; J0295; J0696; J1650; J1940; J2060; J2272; J2919; J3370; J3490; J7050; J7611; J7620; J8540; Q0167; Q9967